=== PATIENT | female | born 1940 | race Caucasian/White ===

== ENCOUNTER 2020-01-09 18:25 | Emergency (ER) | payer MEDICARE, OTHER ==
[~2020-01-09] VITALS: Ht 154.9 cm; Wt 97.7 kg
--- NOTE | 2020-01-09 19:03 | PHYS DOC ---
General Adult EDM: Chief Complaint: HIP PAIN HPI: HPI: Patient is a 79 year old female who presents with right hip pain after falling off the edge of the bed. Patient reports that she had went to the bathroom this morning and was attempting to get back in bed and was too close to the edge and fell off. Patient is reporting right hip pain and right knee pain. Patient has been applying a heating pad and reports that that has helped with her pain. Patient rates pain 8 out of 10. There is 1+ swelling to her right knee. There is no pain with palpation of right hip, no shortening or rotation. Patient is also not having any pain with pelvic rocking. Patient has full range of motion of right knee and no tenderness, deformity or bruising. Patient was able to bear weight after asked incident. Patient normally walks with a walker or cane at home. Patient has a history of arthritis and neuropathy in her right leg. Patient has no focal weaknesses, no loss of bowel or bladder and no saddle paresthesia. Patient also has no urinary complaints. Review of Systems: Review of Systems: Musculoskeletal: Denies back pain. Right knee and hip joint pain. [] Heart Score: Risk Factors: Risk Factors: DM, Current or recent (<one month) smoker, HTN, HLP, family history of CAD, obesity. Risk Scores: Score 0 - 3: 2.5% MACE over next 6 weeks - Discharge Home Score 4 - 6: 20.3% MACE over next 6 weeks - Admit for Clinical Observation Score 7 - 10: 72.7% MACE over next 6 weeks - Early Invasive Strategies Physical Exam: PE: Constitutional: Well developed, well nourished, no acute distress, non-toxic appearance. [] HENT: Normocephalic, atraumatic, bilateral external ears normal, oropharynx moist, no oral exudates, nose normal. [] Eyes: PERRLA, EOMI, conjunctiva normal, no discharge. [] Neck: Normal range of motion, no tenderness, supple, no stridor. [] Cardiovascular:Heart rate regular rhythm, no murmur [] Lungs & Thorax: Bilateral breath sounds clear to auscultation [] Abdomen: Bowel sounds normal, soft, no tenderness, no masses, no pulsatile masses. [] Skin: Warm, dry, no erythema, no rash. [] Back: No tenderness, no CVA tenderness. [] Extremities: No tenderness, no cyanosis, no clubbing, ROM intact, right knee 1+ edema. [] Neurologic: Alert and oriented X 3, normal motor function, normal sensory function, no focal deficits noted. [] Psychologic: Affect normal, judgement normal, mood normal. [] EKG: EKG: [] Radiology/Procedures: Radiology/Procedures: [] Impression: [facility] [address] [place] [address] IMAGING REPORT Signed PATIENT: AWA MANCERA ACCOUNT: [id number] : 1940 LOCATION: ER AGE: 79 SEX: F EXAM STATUS: REG ER ORD. PHYSICIAN: DIANE PIZARRO APRN REASON: pain, fall PROCEDURE: KNEE RIGHT 3V KNEE RIGHT 3V, HIP RIGHT 2V WITH PELVIS 01/09/2020 7:01 PM INDICATION: Fall, pain COMPARISON: None available. TECHNIQUE: AP view of the pelvis, 2 views of the right hip and 3 views of the right knee are provided. FINDINGS/ IMPRESSION: 1. Right hip: Enthesopathy changes are identified along the greater trochanter. Femoral acetabular joint spaces are maintained. No acute fracture or dislocation is identified. Pelvic ring appears intact. There is mild cortical irregularity along the left superior pubic ramus. Correlate with any central pelvic pain to assess for possible fracture. If there is persistent clinical concern, further evaluation with CT could be of benefit. 2. Right knee: No significant knee joint effusion. Mild medial femorotibial joint space narrowing. Mineralization along the medial and lateral femoral tibial joint spaces suggestive of chondrocalcinosis as may be seen with CPPD deposition. Mild right knee osteoarthrosis. No acute fracture or dislocation. Electronically signed by: Kervin Rascon MD (01/09/2020 7:39 PM) [facility] DICTATED and SIGNED BY: KERVIN RASCON MD DATE: 01/09/201938 [facility] [address] [place] [address] IMAGING REPORT Signed PATIENT: AWA MANCERA ACCOUNT: [id number] : 1940 LOCATION: ER AGE: 79 SEX: F EXAM STATUS: REG ER ORD. PHYSICIAN: DIANE PIZARRO APRN REASON: pain, fall PROCEDURE: CT LUMBAR SPINE WO CONTRAST PQRS Compliance Statement: One or more of the following individualized dose reduction techniques were utilized for this examination: 1. Automated exposure control 2. Adjustment of the mA and/or kV according to patient size 3. Use of iterative reconstruction technique CT LUMBAR SPINE WO CONTRAST 01/09/2020 7:01 PM Indication: Pain, fall COMPARISON: None available. TECHNIQUE: A flexible axial CT images of the lumbar spine were obtained without venous contrast. Coronal and sagittal reformats are provided. FINDINGS: There is grade 1 anterolisthesis of L4 on L5. There is superior plate concavity involving L3 with 50 percent height loss, possibly associated with Schmorl's node. There is minimal retropulsion of the superior endplate without significant spinal canal stenosis. Spinous processes are intact. Transverse processes are intact. Visualized portions of the sacrum appear intact. Abdominal aorta is normal in caliber with dense calcified atheromatous plaque. No suspicious retroperitoneal abnormality is identified. Right renal cortical cyst measures 2.2 cm. At L4-L5, there is moderate disc bulge. Moderate to severe facet arthropathy. Moderate bilateral neuroforaminal stenosis. Mild to moderate spinal canal stenosis. L5-S1: There is a left central disc extrusion. Moderate facet arthropathy. There is left lateral recess stenosis. There is moderate left neuroforaminal stenosis. Mild spinal canal stenosis. IMPRESSION: 1. There is a left central disc extrusion at L5-S1 resulting in left lateral recess stenosis and moderate left neuroforaminal stenosis with mild spinal canal stenosis. 2. Superior plate concavity at L3 with 50 percent height loss and mild retropulsion is age-indeterminate and may be chronic. Correlate with point tenderness. If there is persistent clinical concern, further evaluation with MRI could be of benefit. 3. Superior pole simple right renal cyst. Electronically signed by: Kervin Rascon MD (01/09/2020 7:58 PM) [facility] DICTATED and SIGNED BY: KERVIN RASCON MD DATE: 01/09/201957 Course & Med Decision Making: Course & Med Decision Making Pertinent Labs and Imaging studies reviewed. (See chart for details) Patient alert and oriented speaking in full sentences. Skin is pink warm and dry. There is no obvious signs of injury and no obvious deformity. See HPI. Pedal pulses are strong. There is no edema noted to lower extremities. We will obtain a urinalysis to make sure she does not have infection. Patient will have a CT scan of her lumbar spine and x-rays of her knee, hip and pelvis. Patient given [place] in the ED. CT and x-ray showed no acute findings. Patient follow-up with orthopedic. [] Sammy Disclaimer: Dragon Disclaimer: This electronic medical record was generated, in whole or in part, using a voice recognition dictation system. Departure Departure Impression: Primary Impression: Fall Qualified Codes: W19.XXXA - Unspecified fall, initial encounter Additional Impressions: Hip pain, right Knee pain, right Qualified Codes: M25.561 - Pain in right knee UTI (urinary tract infection) Qualified Codes: N39.0 - Urinary tract infection, site not specified Disposition: HOME, SELF-CARE Condition: STABLE Referrals: MAURISIO DUBOSE MD (PCP) RUTH BALL MD Patient Instructions: Fall Prevention and Home Safety, Hip Pain, Knee Pain Additional Instructions: Use ice or heat to help with your pain. Follow-up with your primary care physician. Take the pain medicine I gave you with food and remember will make you sleepy. Scripts Cephalexin (KEFLEX) 500 Mg Capsule 1 CAP PO BID for 7 Days, #14 CAP 0 Refills Prov: DIANE PIZARRO APRN 01/09/20 Hydrocodone/Apap 5-325 (NORCO 5-325 TABLET) 1 Each Tablet 1 TAB PO PRN Q6HRS PRN for PAIN, #6 TAB 0 Refills Prov: DIANE PIZARRO APRN 01/09/20 Justicifation of Admission Dx: Justifications for Admission: Justification of Admission Dx: N/A DIANE PIZARRO APRN Jan 09, 2020 19:03
[2020-01-09] MEDS ORDERED: HYDROcodone/APAP 5/325MG 1 TAB TABLET PO ONE (19:15)
--- NOTE | 2020-01-09 19:42 | RAD ---
KNEE RIGHT 3V, HIP RIGHT 2V WITH PELVIS 01/09/2020 7:01 PM INDICATION: Fall, pain COMPARISON: None available. TECHNIQUE: AP view of the pelvis, 2 views of the right hip and 3 views of the right knee are provided. FINDINGS/ IMPRESSION: 1. Right hip: Enthesopathy changes are identified along the greater trochanter. Femoral acetabular joint spaces are maintained. No acute fracture or dislocation is identified. Pelvic ring appears intact. There is mild cortical irregularity along the left superior pubic ramus. Correlate with any central pelvic pain to assess for possible fracture. If there is persistent clinical concern, further evaluation with CT could be of benefit. 2. Right knee: No significant knee joint effusion. Mild medial femorotibial joint space narrowing. Mineralization along the medial and lateral femoral tibial joint spaces suggestive of chondrocalcinosis as may be seen with CPPD deposition. Mild right knee osteoarthrosis. No acute fracture or dislocation. Electronically signed by: Samia Johnson MD (01/09/2020 7:39 PM) [facility]
--- NOTE | 2020-01-09 20:01 | RAD ---
PQRS Compliance Statement: One or more of the following individualized dose reduction techniques were utilized for this examination: 1. Automated exposure control 2. Adjustment of the mA and/or kV according to patient size 3. Use of iterative reconstruction technique CT LUMBAR SPINE WO CONTRAST 01/09/2020 7:01 PM Indication: Pain, fall COMPARISON: None available. TECHNIQUE: A flexible axial CT images of the lumbar spine were obtained without venous contrast. Coronal and sagittal reformats are provided. FINDINGS: There is grade 1 anterolisthesis of L4 on L5. There is superior plate concavity involving L3 with 50 percent height loss, possibly associated with Schmorl's node. There is minimal retropulsion of the superior endplate without significant spinal canal stenosis. Spinous processes are intact. Transverse processes are intact. Visualized portions of the sacrum appear intact. Abdominal aorta is normal in caliber with dense calcified atheromatous plaque. No suspicious retroperitoneal abnormality is identified. Right renal cortical cyst measures 2.2 cm. At L4-L5, there is moderate disc bulge. Moderate to severe facet arthropathy. Moderate bilateral neuroforaminal stenosis. Mild to moderate spinal canal stenosis. L5-S1: There is a left central disc extrusion. Moderate facet arthropathy. There is left lateral recess stenosis. There is moderate left neuroforaminal stenosis. Mild spinal canal stenosis. IMPRESSION: 1. There is a left central disc extrusion at L5-S1 resulting in left lateral recess stenosis and moderate left neuroforaminal stenosis with mild spinal canal stenosis. 2. Superior plate concavity at L3 with 50 percent height loss and mild retropulsion is age-indeterminate and may be chronic. Correlate with point tenderness. If there is persistent clinical concern, further evaluation with MRI could be of benefit. 3. Superior pole simple right renal cyst. Electronically signed by: Samia Johnson MD (01/09/2020 7:58 PM) [facility]
[2020-01-09] MEDS ORDERED: HYDR-3164 PO (20:12)
[2020-01-09 20:23] VITALS: BP 145/65
[2020-01-09 20:24] LABS: BILIRUBIN,URINE NEGATIVE (NEG); CLARITY,URINE CLOUDY; COLOR,URINE YELLOW; NITRITE,URINE NEGATIVE (NEG); PROTEIN,URINE NEGATIVE (NEG-TRACE); UROBILINOGEN,URINE 0.2 mg/dL (0.2 mg/dL)
[2020-01-09 20:29] LABS: BACTERIA,URINE FEW /HPF (0-FEW); RBC,URINE 0 /HPF (0-2); SQUAMOUS EPITHELIAL CELL,UR MOD /LPF; WBC,URINE >40 /HPF (0-4)
[2020-01-09] MEDS ORDERED: CEPH-264 PO (20:34)
== END 2020-01-09 20:50 | disposition home or self-care (01) ==
LOC: ER 18:25
DX: M25.551 Pain in right hip (principal); M25.561 Pain in right knee; G89.11 Acute pain due to trauma; N39.0 Urinary tract infection, site not specified; M17.11 Unilateral primary osteoarthritis, right knee; N28.1 Cyst of kidney, acquired; M48.02 Spinal stenosis, cervical region; W06.XXXA Fall from bed, initial encounter; Y93.89 Activity, other specified; Y92.89 Other specified places as the place of occurrence of the external cause; Y99.8 Other external cause status
CPT/HCPCS: 72131; 73502; 73562; 81001; 87086; 99285-25

== ENCOUNTER → 2020-02-13 | Outpatient (CLI) | payer MEDICARE, OTHER ==
[~2020-02-13] MED LIST: CEPH-264 PO; HYDR-3164 PO; REGADENOSON 0.4 MG/5 ML DISP.SYRIN. IV ONE
--- NOTE | 2020-02-13 14:44 | CARD ---
MR#: [id number] Date of Study: 02/13/2020 Ordering Physician: KATHY ENGEL, Referring Physician: KATHY ENGEL, Tech: Awilda Zafar [facility] [[email or web address]] APPROVED REPORT EXAM: Two-dimensional and M-mode echocardiogram with Doppler and color Doppler. Other Information Quality : Good INDICATION Murmur Pacemaker 2D DIMENSIONS RVDd3.0 (2.9-3.5cm)Left Atrium(2D)3.6 (1.6-4.0cm) IVSd1.2 (0.7-1.1cm)Aortic Root(2D)2.9 (2.0-3.7cm) LVDd4.5 (3.9-5.9cm)LVOT Diameter2.0 (1.8-2.4cm) PWd1.2 (0.7-1.1cm)LVDs2.6 (2.5-4.0cm) FS (%) 30.0 %SV65.7 ml LVEF(%)60.0 (>50%) Aortic Valve AoV Peak Prince.170.6cm/sAoV VTI35.1cm AO Peak GR.11.6mmHgLVOT Peak Prince.99.8cm/s AO Mean GR.6mmHgAVA (VMAX)1.90cm2 TASIA (VTI)2.70cf9US P 1/2 Nzho874fh Mitral Valve MV E Fegsnepq01.6cm/sMV DECEL MBTV084nw MV A Abpuihqq67.7cm/sE/A Ratio0.8 Tricuspid Valve TR P. Dnifsplo100ph/sRAP ZTBJCGQN3bzVp TR Peak Gr.59frDeEWTA03cnTr Pulmonary Vein S1 Vnhgdxnz12.9cm/sD2 Mimgxryy80.0cm/s LEFT VENTRICLE The left ventricle is normal size. There is moderate concentric left ventricular hypertrophy. The lef t ventricular systolic function is normal and the ejection fraction is within normal range. The Eject ion Fraction is 55-60%. There is normal LV segmental wall motion. Transmitral Doppler flow pattern is Grade I-abnormal relaxation pattern. RIGHT VENTRICLE The right ventricle is normal size. The right ventricular systolic function is normal. There is a pac emaker lead in the right ventricle. ATRIA The left atrium size is normal. The right atrium is mildly dilated. A pacemaker is seen in the right atrium consistent with history. The interatrial septum is intact with no evidence for an atrial septa l defect or patent foramen ovale as noted on 2-D or Doppler imaging. AORTIC VALVE The aortic valve is mildly thickened but opens well. Doppler and Color Flow revealed mild aortic regu rgitation. There is no significant aortic valvular stenosis. MITRAL VALVE The mitral valve is calcified but opens well. Mitral annular calcification is mild. There is no evide nce of mitral valve prolapse. There is no mitral valve stenosis. Doppler and Color Flow revealed no m itral valve regurgitation noted. TRICUSPID VALVE The tricuspid valve is normal in structure and function. Doppler and Color Flow revealed mild tricusp id regurgitation. There is moderate pulmonary hypertension. The PA pressure was estimated at 42 mmHg. There is no tricuspid valve stenosis. PULMONIC VALVE Doppler and Color Flow revealed trace to mild pulmonic valvular regurgitation. There is no pulmonic v alvular stenosis. GREAT VESSELS The aortic root is normal in size. The ascending aorta is normal in size. The IVC is normal in size a nd collapses >50% with inspiration. PERICARDIAL EFFUSION There is no evidence of significant pericardial effusion. Critical Notification Critical Value: No <Conclusion> There is moderate concentric left ventricular hypertrophy. The left ventricular systolic function is normal and the ejection fraction is within normal range. Th e Ejection Fraction is 55-60%. There is normal LV segmental wall motion. There is a pacemaker lead in the right ventricle. Doppler and Color Flow revealed mild aortic regurgitation. Doppler and Color Flow revealed mild tricuspid regurgitation. There is moderate pulmonary hypertensio n. The PA pressure was estimated at 42 mmHg. Signed by : Kwabena Reese, Electronically Approved : 02/13/2020 14:43:58
--- NOTE | 2020-02-13 17:42 | RAD ---
MR#: [id number] Date of Study: 02/13/2020 Ordering Physician: KATHY ENGEL, Referring Physician: PREETHI LAZO Tech: SIMONE Weinberg APPROVED REPORT Test Type: Pharmacological Stress Nurse/Tech: Tanner Quiroga RN Test Indications: CAD Cardiac History: [place], HTN, PPM, See EMR Medications: ASA 81mg, See EMR Medical History: Smoker, Asthma, COPD, CKD, DM, See EMR Resting ECG: Paced Resting Heart Rate: 66 bpm Resting Blood Pressure: 142/57mmHg Pretest Chest Pain: No chest pain Nurse/Tech Notes Right lower lobe with crackles. All other lobes CTA. Heart tones regular. Consent: The procedure was explained to the patient in lay terms. Informed consent was witnessed. Luis eout was entered into [employer]. History and Stress Test performed by SHARMILA Wright, ARRT (R) (N) Pharm. Details Pharmacologic stress testing was performed using 0.4mg per 5ml of regadenoson given intravenously ove r 7-10 seconds. Stress Symptoms No chest pain or symptoms. POST EXERCISE Reason for Termination: Infusion complete Max HR: 94 bpm Max Blood Pressure: 137/53mmHg Blood Pressure response to exercise: Normal blood pressure response during stress. Heart Rate response to exercise: WNL Chest Pain: No. Arrhythmia: Yes. PVCs ST Change: No. INTERPRETATION Stress EKG Conclusion: No evidence of stress induced EKG changes. Frequent PVC's. Imaging Protocol IMAGE PROTOCOL: Rest Tc-99m/stress Tc-99m 1 day Rest: Stress: Viability: Radiopharm.Tc99m VeidneoemUw52j Sestamibi Llja70iVh 33mCi Duration 15min. 10min. Img Date 02/13/2020 02/13/2020 Inj-Img Chie78jzj. 60min. Rest Admin Site:IV - Left AntecubitalAdministrator:SIMONE Weinberg Stress Admin Site: IV - Left AntecubitalAdministrator: SIMONE Weinberg STRESS DATA End Diast. Vol.65.0mlAv. Heart Rate70.0bpm End Syst. Vol.14.0mlCO Index BSA0.0L/min Myocardial Frpy077.0gEject. Wpraauyx88.0% Stress Rates Pk. Fill Rate2.44EDV/secLVtime Pk. Fill 237.01msec Pk. Empty Rate4.60ESV/secLVtime Pk. Ikyut830.91msec 1/ Pk. Fill1.00EDV/sec Stress Scores Regional WT0.00Summed WT0.00 Regional WM0.00Summed WM0.00 The rest and stress images show normal perfusion, normal contraction and thickening. LV Perf. Quant 17 Seg. SSS0.00 17 Seg. SRS0.00 17 Seg. SDS0.00 Stress Defect Extent (% LAD)0.00Rest Defect Extent (% LAD)0.00Rev. Defect Extent (% LAD)0.00 Stress Defect Extent (% LCX) 0.00Rest Defect Extent (% LCX)0.00Rev. Defect Extent (% LCX)0.00 Stress Defect Extent (% RCA)0.00Rest Defect Extent (% RCA)0.00Rev. Defect Extent (% RCA)0.00 Stress Defect Extent (% JAMILA)0.00Rest Defect Extent (% JAMILA)0.00Rev. Defect Extent (% JAMILA)0.00 Other Information Quality:Average Risk Assessment: Low Risk Conclusion 1. No evidence of EKG changes with stress testing. Frequent PVC's noted. 2. Normal perfusion at stress/rest. 3. Low risk study. 4. EF > 60%. Signed by : Kwabena Reese, Electronically Approved : 02/13/2020 17:42:36
== END | disposition home or self-care (01) ==
LOC: EDUNIT# 02-12 13:00 → NM 07:33
PROVIDERS: ATTEND Internal Medicine Cardiovascular Disease
DX: I08.8 Other rheumatic multiple valve diseases (principal); I25.10 Atherosclerotic heart disease of native coronary artery without angina pectoris; I10 Essential (primary) hypertension; I25.2 Old myocardial infarction; I27.20 Pulmonary hypertension, unspecified; Z95.0 Presence of cardiac pacemaker
CPT/HCPCS: 78452; 93017; 93306; A9500; J2785

== ENCOUNTER → 2020-02-28 | Outpatient (CLI) | payer MEDICARE, OTHER ==
[~2020-02-28] MED LIST changes: -REGADENOSON 0.4 MG/5 ML DISP.SYRIN. IV ONE
--- NOTE | 2020-02-28 13:31 | KCIC ---
STUDY: Complete renal sonogram INDICATION: Stage III chronic kidney disease. COMPARISON: None. TECHNIQUE: Real-time grayscale and color Doppler sonographic evaluation of both kidneys. The bladder was also evaluated. FINDINGS: Right kidney: Measures 10.1 cm in length. The cortex is thinned and echogenicity increased. Several cysts are identified none of which exhibit complex features noting that the smaller cysts are somewhat difficult to fully characterize based on size. The largest cyst measures 2.1 x 2.1 x 2.2 cm. No hydronephrosis. Left kidney: Measures 11.9 cm in length and the cortex appears thinned at a few locations and mildly echogenic but less notable relative to the contralateral side. Small exophytic cystic foci without thickened septations or internal vascularity. The largest cyst measures up to 1.2 cm. No hydronephrosis. Bladder: Decompressed and not well evaluated. Miscellaneous: None. IMPRESSION: 1. The kidneys are normal in length. No hydronephrosis. The right kidney exhibits cortical thinning and increased cortical echogenicity as can be seen with chronic medical renal disease. Similar but less notable findings on the left. 2. Several renal cysts bilaterally, larger on the right, without complex features that would warrant dedicated follow-up. Electronically signed by: CONSUELO JACOBO MD (02/28/2020 1:29 PM) [id number]
== END ==
LOC: KCIC US 12:26
PROVIDERS: ATTEND Internal Medicine Nephrology
DX: N28.1 Cyst of kidney, acquired (principal); N18.3 Chronic kidney disease, stage 3 (moderate)
CPT/HCPCS: 76770

== ENCOUNTER → 2020-04-03 | Outpatient (CLI) | payer MEDICARE, OTHER ==
--- NOTE | 2020-04-03 16:49 | RAD ---
DATE: 04/03/2020 1:28 PM EXAM: MAMMO TARIQ SCREENING BILATERAL HISTORY: Screening COMPARISON: None available. This will serve as a new baseline. Bilateral CC and MLO views of the breasts were performed. Bilateral breast tomosynthesis was performed in CC and MLO projections. This study was interpreted with the benefit of Computerized Aided Detection (CAD). FINDINGS: Breast Density: SCATTERED The breast parenchyma shows scattered fibroglandular densities. Breast parenchyma level B No suspicious masses, microcalcifications or architectural distortion is present to suggest malignancy in either breast. The visualized axillae are unremarkable. IMPRESSION: No mammographic evidence of malignancy. BI-RADS CATEGORY: 1 NEGATIVE RECOMMENDED FOLLOW-UP: 12M 12 MONTH FOLLOW-UP Annual screening mammography is recommended, unless clinically indicated sooner based on symptoms or change in physical exam. PQRS compliance statement: Patient information was entered into a reminder system with a target due date for the next mammogram. Mammography is a sensitive method for finding small breast cancers, but it does not detect them all and is not a substitute for careful clinical examination. A negative mammogram does not negate a clinically suspicious finding and should not result in delay in biopsying a clinically suspicious abnormality. "Our facility is accredited by the [employer] Mammography Program."
== END | disposition home or self-care (01) ==
LOC: MAMMO 13:09
PROVIDERS: ATTEND Family Medicine
DX: Z12.31 Encounter for screening mammogram for malignant neoplasm of breast (principal)
CPT/HCPCS: 77063; 77067

== ENCOUNTER → 2020-08-29 | Outpatient (CLI) | payer MEDICARE, OTHER ==
[~2020-08-29] MED LIST changes: +IOHEXOL 240 MG/ML 50ML VIAL. PO ONE
--- NOTE | 2020-08-29 15:17 | KCIC ---
CT ABDOMEN+PELVIS W Indication: Reason: Pain, weight loss, change in bowel habits. / Spl. Instructions: / History: Pelvic pain, previous umbilical surgery TECHNIQUE: CT examination of the abdomen and pelvis was performed following the administration of oral and nonionic intravenous contrast. One or more of the following dose reduction techniques were utilized: *Automated exposure control (AEC) *Adjustment of mA and/or kV according to patient size *Use of iterative reconstruction technique *CT scan done according to ALARA, or ALARA/IMAGE GENTLY FINDINGS: Motion artifact limits evaluation. The visualized lung bases demonstrate diffuse groundglass opacities and reticular markings which are nonspecific but may represent atelectasis, air- trapping, fibrosis, and/or motion artifact. Heart is enlarged with coronary artery calcifications. There is a small hiatal hernia. There are calcified granulomas in the liver and spleen. There are small bilateral renal lesions, several of which demonstrate low density consistent with cysts. There is a 1.0 cm round lesion in the right kidney measuring 78 Hounsfield units which is nonspecific but could represent a hyperdense cyst. There is a 1.4 cm round lesion in the lower pole of the left kidney measuring 25 Hounsfield units, also nonspecific but possibly representing a hyperdense cyst. The liver, gallbladder, spleen, pancreas, adrenal glands and kidneys are otherwise normal. Urinary bladder is normal in appearance. Diverticulosis coli is seen without bowel obstruction or inflammation. No evidence for acute appendicitis. There are small bilateral fat-containing inguinal hernias. Moderate atherosclerotic calcifications are seen. No lymphadenopathy or ascites is seen. Degenerative changes are seen in the spine. IMPRESSION: Bilateral renal lesions, several of which demonstrate low-density consistent with cysts. Bilateral hyperdense renal lesions are nonspecific but could represent hyperdense cysts. Other neoplastic considerations are not excluded however. Further evaluation with ultrasound is recommended. If ultrasound is inconclusive, these can be further evaluated with MRI with and without contrast. Diverticulosis coli without bowel inflammation or obstruction. Suboptimal evaluation of the lung bases due to motion artifact. Diffuse groundglass opacities and reticular markings of the lung bases are nonspecific but could represent atelectasis, air-trapping, fibrosis, and/or motion artifact. Infection is not excluded. MTDD
== END ==
LOC: KCIC CT 08:49
PROVIDERS: ATTEND Internal Medicine Gastroenterology
DX: K57.30 Diverticulosis of large intestine without perforation or abscess without bleeding (principal); N28.89 Other specified disorders of kidney and ureter; I51.7 Cardiomegaly; I25.10 Atherosclerotic heart disease of native coronary artery without angina pectoris; K44.9 Diaphragmatic hernia without obstruction or gangrene; K76.89 Other specified diseases of liver; D73.89 Other diseases of spleen; K40.90 Unilateral inguinal hernia, without obstruction or gangrene, not specified as recurrent; I70.90 Unspecified atherosclerosis; M47.816 Spondylosis without myelopathy or radiculopathy, lumbar region; R63.4 Abnormal weight loss; R19.4 Change in bowel habit
CPT/HCPCS: 74176; Q9966

== ENCOUNTER → 2020-09-11 | Outpatient (CLI) | payer MEDICARE, OTHER ==
[~2020-09-11] MED LIST changes: +AMOX1TAB58 PO; +CETI10TA16 PO; +CLOP75TA PO; +CRESTOR5 MG PO; +DICY10CA3 PO; +DONE10TA7 PO; +GLYB2.5T2 PO; -IOHEXOL 240 MG/ML 50ML VIAL. PO ONE; +LACT1CAP48 PO; +LOSA25TA4 PO; +METF500T16 PO; +METH5TAB85 PO; +PRED20TA PO; +QUET100T4 PO; +SERT-266 PO
--- NOTE | 2020-09-11 17:08 | KCIC ---
US RENAL BILAT History: Reason: Bilateral Renal Lesions seen on CT scan 08-29-20. Instructions: / History: Comparison: CT abdomen and pelvis 08/29/2020. Renal ultrasound 02/28/2020. Technique: Sonographic examination of the kidneys and bladder. Findings: Right kidney: 10.5 cm in length. Diffuse renal cortical thinning. Multiple right renal cysts are pres ent, largest measuring 2.7 cm. No renal masses identified. No hydronephrosis. Left kidney: 11.7 cm in length. Diffuse renal cortical thinning. Multiple left renal cysts are presen t. Largest measures 1.8 cm. No left renal masses. No hydronephrosis. Bladder: Unremarkable partially distended. Aorta/IVC: Visualized portions are unremarkable. Other: No ascites. Impression: 1. Multiple bilateral renal cysts without renal mass identified. Hyperdense lesions on comparison CT are consistent with proteinaceous or hemorrhagic cysts. 2. Cortical thinning consistent with medical renal disease. Electronically signed by: Mk Buckley MD (09/11/2020 5:06 PM) [facility]
== END ==
LOC: KCIC US 10:24
PROVIDERS: ATTEND Physician Assistant
DX: N28.1 Cyst of kidney, acquired (principal)
CPT/HCPCS: 76770

== ENCOUNTER 2020-10-14 11:55 | Inpatient (IN) | payer MEDICARE, OTHER ==
[~2020-10-14] VITALS: Ht 157.5 cm; Wt 70.5 kg
[~2020-10-14 11:55] MED LIST changes: -AMOX1TAB58 PO; +LOSA25TA12 PO; -LOSA25TA4 PO; -PRED20TA PO
--- NOTE | 2020-10-14 12:27 | RAD ---
INDICATION: Reason: chest pain, SOA / Spl. Instructions: / History: COMPARISON: September 19, 2020 FINDINGS: Single view of chest obtained. Cardiac mediastinal silhouette is similar to prior with calcific atherosclerosis as well as pacemaker . There are some degenerative changes of the bilateral shoulders and acromioclavicular joints. Inters titial and alveolar opacities are seen throughout the bilateral lungs in a similar distribution vignesh red to prior IMPRESSION: * Persistent interstitial and groundglass opacities bilaterally which could be from edema or infiltr ate. Electronically signed by: Obdulio Schaffer MD (10/14/2020 12:25 PM) [id number]
[2020-10-14 13:42] LABS: BASO # 0.1 x10^3/uL (0.0-0.2); BASO % 1 % (0-3); EOS # 0.3 x10^3/uL (0.0-0.7); EOS % 3 % (0-3); HEMATOCRIT 33.1 % (36.0-47.0); LYMPH # 1.7 x10^3/uL (1.0-4.8); LYMPH % 18 % (24-48); MEAN CORPUSCULAR HEMOGLOBIN 27 pg (25-35); MEAN CORPUSCULAR HGB CONC 33 g/dL (31-37); MEAN CORPUSCULAR VOLUME 80 fL (79-100); MONO # 0.7 x10^3/uL (0.0-1.1); MONO % 7 % (0-9); NEUT % 71 % (31-73); PLATELET COUNT 287 x10^3/uL (140-400); RED BLOOD COUNT 4.12 x10^6/uL (3.50-5.40); RED CELL DISTRIBUTION WIDTH 15.3 % (11.5-14.5); WHITE BLOOD COUNT 9.8 x10^3/uL (4.0-11.0)
[2020-10-14 13:54] LABS: CALCIUM 8.7 mg/dL (8.5-10.1); CREATININE 1.2 mg/dL (0.6-1.0); GFR 43.4; POTASSIUM 4.8 mmol/L (3.5-5.1)
[2020-10-14 14:01] LABS: ALBUMIN 3.1 g/dL (3.4-5.0); ALBUMIN/GLOBULIN RATIO 0.9 (1.0-1.7); MAGNESIUM 1.9 mg/dL (1.8-2.4); TOTAL BILIRUBIN 0.2 mg/dL (0.2-1.0); TOTAL PROTEIN 6.6 g/dL (6.4-8.2)
--- NOTE | 2020-10-14 14:22 | ED.ADGEN ---
Past Medical History Past Medical History: Arthritis, COPD, Dementia, Diabetes-Type II, Hypertension, Other Additional Past Medical Histor: NEUROPATHY Past Surgical History: Appendectomy, Cholecystectomy, Other Additional Past Surgical Histo: PACEMAKER Smoking Status: Former Smoker Alcohol Use: None General Adult EDM: Chief Complaint: SHORTNESS OF BREATH HPI: HPI: Patient is a 79 year old female who presents emergency department via EMS today with reports of shortness of breath. EMS reports that the patient's home health nurse called patient of frequent falls and hypoxia. Patient's O2 sat was 88% on room air. Patient states she has had a productive brown cough for several weeks and that she feels short of breath after she has been walking. Patient denies any chest pain, palpitations, nausea, vomiting, diarrhea, abdominal pain, or dizziness. She denies any fever, swelling of her extremities, body aches, or rash. Patient does not wear oxygen at home. She reports that she has received two COVID-19 immunizations already. Patient reports she was having problems with a cough in the sputum prior to receiving her first Covid injection. She denies any known exposure to COVID-19. She currently denies any pain. Review of Systems: Review of Systems: Complete ROS is negative unless otherwise noted in HPI. Allergies: Allergies: Allergies Coded Allergies Type Severity Reaction Last Updated Verified No Known Drug Allergies 01/09/20 No Physical Exam: PE: See Above Constitutional: Well developed, well nourished, no acute distress, non-toxic appearance. [] HENT: Normocephalic, atraumatic, bilateral external ears normal, nose normal. [] Eyes: PERRLA, EOMI, conjunctiva normal, no discharge. [] Neck: Normal range of motion, no stridor. [] Cardiovascular:Heart rate regular rhythm Lungs & Thorax: Respirations even and unlabored, no retractions, no respiratory distress, lung sounds diminished bilateral bases, clear in upper lobes bilaterally, Abdomen: soft, no tenderness, no palpable mass, no pulsatile mass, Skin: Warm, dry, no erythema, no rash. [] Extremities: No cyanosis, ROM intact, no edema. [] Neurologic: Alert and oriented X 3, normal motor, normal sensory, no focal deficits noted. [] Psychologic: Affect normal, judgement normal, mood normal. [] Current Patient Data: Labs: Laboratory Tests Test 10/14/20 13:30 White Blood Count 9.8 x10^3/uL (4.0-11.0) Red Blood Count 4.12 x10^6/uL (3.50-5.40) Hemoglobin 11.0 g/dL (12.0-15.5) L Hematocrit 33.1 % (36.0-47.0) L Mean Corpuscular Volume 80 fL (79-100) Mean Corpuscular Hemoglobin 27 pg (25-35) Mean Corpuscular Hemoglobin Concent 33 g/dL (31-37) Red Cell Distribution Width 15.3 % (11.5-14.5) H Platelet Count 287 x10^3/uL (140-400) Neutrophils (%) (Auto) 71 % (31-73) Lymphocytes (%) (Auto) 18 % (24-48) L Monocytes (%) (Auto) 7 % (0-9) Eosinophils (%) (Auto) 3 % (0-3) Basophils (%) (Auto) 1 % (0-3) Neutrophils # (Auto) 7.0 x10^3/uL (1.8-7.7) Lymphocytes # (Auto) 1.7 x10^3/uL (1.0-4.8) Monocytes # (Auto) 0.7 x10^3/uL (0.0-1.1) Eosinophils # (Auto) 0.3 x10^3/uL (0.0-0.7) Basophils # (Auto) 0.1 x10^3/uL (0.0-0.2) D-Dimer (Kay) < 0.27 ug/mlFEU Sodium Level 142 mmol/L (136-145) Potassium Level 4.8 mmol/L (3.5-5.1) Chloride Level 105 mmol/L (98-107) Carbon Dioxide Level 26 mmol/L (21-32) Anion Gap 11 (6-14) Blood Urea Nitrogen 22 mg/dL (7-20) H Creatinine 1.2 mg/dL (0.6-1.0) H Estimated GFR (Cockcroft-Gault) 43.4 BUN/Creatinine Ratio 18 (6-20) Glucose Level 124 mg/dL (70-99) H Calcium Level 8.7 mg/dL (8.5-10.1) Magnesium Level 1.9 mg/dL (1.8-2.4) Total Bilirubin 0.2 mg/dL (0.2-1.0) Aspartate Amino Transferase (AST) 15 U/L (15-37) Alanine Aminotransferase (ALT) 11 U/L (14-59) L Alkaline Phosphatase 76 U/L (46-116) Creatine Kinase 45 U/L (26-192) Creatine Kinase MB (Mass) 0.8 ng/mL (0.0-3.6) Creatine Kinase MB Relative Index 1.8 % (0-4) Troponin I Quantitative < 0.017 ng/mL (0.000-0.055) JL-Bmm-G-Type Natriuretic Peptide 715 pg/mL (0-449) H Total Protein 6.6 g/dL (6.4-8.2) Albumin 3.1 g/dL (3.4-5.0) L Albumin/Globulin Ratio 0.9 (1.0-1.7) L Lipase 60 U/L (73-393) L Laboratory Tests 10/14/20 13:30 Laboratory Tests 10/14/20 13:30 Vital Signs: Vital Signs Date Time Temp Pulse Resp B/P (MAP) Pulse Ox O2 Delivery O2 Flow Rate FiO2 10/14/20 14:04 60 18 141/65 (90) 98 Nasal Cannula 2.0 10/14/20 12:06 97.3 97.3 EKG: EK- SR rate 60 no STEMI read by Dr. Levy. Heart Score: C/O Chest Pain: No Risk Factors: Risk Factors: DM, Current or recent (<one month) smoker, HTN, HLP, family history of CAD, obesity. Risk Scores: Score 0 - 3: 2.5% MACE over next 6 weeks - Discharge Home Score 4 - 6: 20.3% MACE over next 6 weeks - Admit for Clinical Observation Score 7 - 10: 72.7% MACE over next 6 weeks - Early Invasive Strategies Radiology/Procedures: Radiology/Procedures: PROCEDURE: CHEST AP ONLY INDICATION: Reason: chest pain, SOA / Spl. Instructions: / History: COMPARISON: September 19, 2020 FINDINGS: Single view of chest obtained. Cardiac mediastinal silhouette is similar to prior with calcific atherosclerosis as well as pacemaker. There are some degenerative changes of the bilateral shoulders and acromioclavicular joints. Interstitial and alveolar opacities are seen throughout the bilateral lungs in a similar distribution compared to prior IMPRESSION: * Persistent interstitial and groundglass opacities bilaterally which could be from edema or infiltrate. Electronically signed by: Obdulio Schaffer MD (10/14/2020 12:25 PM) [id number] [] Course & Med Decision Making: Course & Med Decision Making Pertinent Labs and Imaging studies reviewed. (See chart for details) [id number] with Dr. Barnhart who is the admitting physician, and care was assumed following discussion of patient. Will admit patient for shortness of breath. Patient's vital signs stable. Patient remains afebrile, appears nontoxic, respirations even and unlabored. Patient will be admitted to the telemetry floor. Patient's case and plan of care also discussed with Dr. Levy [] Sammy Disclaimer: Sammy Disclaimer: This electronic medical record was generated, in whole or in part, using a voice recognition dictation system. Departure Departure Impression: Primary Impression: Shortness of breath Additional Impression: UTI (urinary tract infection) Disposition: 09 ADMITTED INPT THIS HOSP Admitting Physician: CIRA (BUZZ) Condition: STABLE Referrals: MAURISIO DUBOSE MD (PCP) Problem Qualifiers Additional Impression: UTI (urinary tract infection) Urinary tract infection type: site unspecified Hematuria presence: without hematuria Qualified Codes: N39.0 - Urinary tract infection, site not specified YOANNA YANG APRN Oct 14, 2020 14:22
[2020-10-14 14:48] LABS: BILIRUBIN,URINE NEGATIVE (NEG); CLARITY,URINE CLEAR; COLOR,URINE YELLOW; NITRITE,URINE NEGATIVE (NEG); PH,URINE 5.5 (<5.0-8.0); PROTEIN,URINE 30 mg/dL (NEG-TRACE); UROBILINOGEN,URINE 0.2 mg/dL (0.2 mg/dL)
[2020-10-14 14:59] LABS: RBC,URINE 0 /HPF (0-2); WBC,URINE 20-40 /HPF (0-4)
[2020-10-14 15:00] LABS: BACTERIA,URINE FEW /HPF (0-FEW)
[2020-10-14 15:20] VITALS: BP 100/81
[2020-10-14] MEDS ORDERED: cefTRIAXone IV Push 1 GM VIAL. IVP ONE (15:30)
[2020-10-14] MEDS ORDERED: DICYCLOMINE HCL 10 MG CAPSULE PO PRN (16:45)
[2020-10-14] MEDS ORDERED: ZOLPIDEM 5 MG TABLET. PO PRN (18:30)
[2020-10-14 19:00] VITALS: BP 130/53
--- NOTE | 2020-10-14 19:18 | PDOC1 ---
History and Physical Date of Admission Date of Admission DATE: 10/14/20 TIME: 19:12 Identification/Chief Complaint Chief Complaint cough, dyspnea Source Source: Chart review, Patient History of Present Illness History of Present Illness Ms. Schaeffer, is a 79 year old female admit with cough and dyspnea and hypoxia. She was sent to ER by EMS when her home health nurse called patient of frequent falls and hypoxia. new productive brown cough for days and noticeably short of breath, w. exe rtion. she was hospiotalized here 3 weeks ago, and felt much better at [place], then has declined over the past week until now. Patient denies any chest pain, palpitations, nausea, vomiting, diarrhea, abdominal pain, or dizziness. She denies any fever, swelling of her extremities, body aches, or rash. She reports that she has received two COVID- 19 immunizations already Past Medical History Cardiovascular: HTN Pulmonary: No pertinent hx GI: No pertinent hx Hepatobiliary: No pertinent hx Psych: No pertinent hx Rheumatologic: No pertinent hx Infectious disease: No pertinent hx Renal/: No pertinent hx Endocrine: Hyperthyroidism Family History Family History: No Significant Social History Smoke: No ALCOHOL: none Drugs: None Current Problem List Problem List Problems Medical Problems: (1) Shortness of breath Status: Acute (2) UTI (urinary tract infection) Status: Acute Current Medications Current Medications Current Medications Ceftriaxone Sodium (Rocephin) 1 gm 1X ONCE IVP Last administered on 10/14/20at 16:02; Start 10/14/20 at 15:30; Stop 10/14/20 at 15:31; Status DC Cetirizine HCl (ZyrTEC) 10 mg DAILY PO ; Start 10/15/20 at 09:00 Clopidogrel Bisulfate (Plavix) 75 mg DAILY PO ; Start 10/15/20 at 09:00 Dicyclomine HCl (Bentyl) 10 mg PRN Q6HRS PRN PO ABDOMINAL CRAMPS; Start 10/14/20 at 16:45 Donepezil HCl (Aricept) 10 mg HS PO ; Start 10/14/20 at 21:00 Losartan Potassium (Cozaar) 25 mg DAILY PO ; Start 10/15/20 at 09:00 Quetiapine Fumarate (SEROquel) 100 mg QHS PO ; Start 10/14/20 at 21:00 Sertraline HCl (Zoloft) 25 mg DAILY PO ; Start 10/15/20 at 09:00 Lactobacillus Rhamnosus (Culturelle) 1 cap BID PO ; Start 10/14/20 at 21:00 Methimazole (Tapazole) 5 mg DAILY PO ; Start 10/15/20 at 09:00 Atorvastatin Calcium (Lipitor) 40 mg QHS PO ; Start 10/14/20 at 21:00 Enoxaparin Sodium (Lovenox Per Pharmacy Prophylaxis Dosing) 1 each PRN DAILY PRN MC SEE COMMENTS; Start 10/14/20 at 16:45 Enoxaparin Sodium (Lovenox 40mg Syringe) 40 mg Q24H SQ ; Start 10/15/20 at 09:00 Zolpidem Tartrate (Ambien) 5 mg PRN QHS PRN PO INSOMNIA; Start 10/14/20 at 18:30 Active Scripts Active Seroquel (Quetiapine Fumarate) 100 Mg Tablet 1 Tab PO QHS Reported Dicyclomine Hcl 10 Mg Capsule 1 Cap PO PRN Q6HRS Acidophilus Lactobacilli (Lactobacillus Acidophilus) 1 Each Capsule 1 Cap PO BID 30 Days Cetirizine Hcl 10 Mg Tablet 1 Tab PO DAILY Crestor (Rosuvastatin Calcium) 5 Mg Tablet 10 Mg PO DAILY Tapazole (Methimazole) 5 Mg Tablet 5 Mg PO DAILY Clopidogrel (Clopidogrel Bisulfate) 75 Mg Tablet 75 Mg PO DAILY Donepezil Hcl 10 Mg Tablet 10 Mg PO HS Sertraline Hcl 25 Mg Tablet 25 Mg PO DAILY Losartan Potassium 25 Mg Tablet 25 Mg PO DAILY Allergies Allergies: Coded Allergies: No Known Drug Allergies (Unverified , 01/09/20) ROS General: YES: Fatigue; No: Chills, Night Sweats, Malaise, Appetite, Other PSYCHOLOGICAL ROS: No: Anxiety, Behavioral Disorder, Concentration difficultie, Decreased libido, Depression, Disorientation, Hallucinations, Hostility, Irritablity, Memory difficulties, Mood Swings, Obsessive thoughts, Physical abuse, Sexual abuse, Sleep disturbances, Suicidal ideation, Other Eyes: No Blurry vision, No Decreased vision, No Double vision, No Dry eyes, No Excessive tearing, No Eye Pain, No Itchy Eyes, No Loss of vision, No Photophobia, No Scotomata, No Uses contacts, No Uses glasses, No Other HEENT: YES: Heacaches; No: Visual Changes, Hearing change, Nasal congestion, Nasal discharge, Oral lesions, Sinus pain, Sore Throat, Epistaxis, Sneezing, Snoring, Tinnitus, Vertigo, Vocal changes, Other Respiratory: YES: Cough, Shortness of breath, SOB with excertion; No: Orthopnea, Pleuritic Pain, Sputum Changes, Stridor, Tachypnea, Wheezing, Other Cardiovascular: No Chest Pain, No Palpitations, No Orthopnea, No Paroxysmal Noc. Dyspnea, No Edema, No Lt Headedness, No Other Gastrointestinal: Yes Nausea; No Vomiting, No Abdominal Pain, No Diarrhea, No Constipation, No Melena, No Hematochezia, No Other Musculoskeletal: No Gait Disturbance, No Joint Pain, No Joint Stiffness, No Joint Swelling, No Muscle Pain, No Muscular Weakness, No Pain In:, No Swelling In:, No Other Neurological: No Behavorial Changes, No Bowel/Bladder ControlChng, No Confusion, No Dizziness, No Gait Disturbance, No Headaches, No Impaired Coord/balance, No Memory Loss, No Numbness/Tingling, No Seizures, No Speech Problems, No Tremors, No Visual Changes, No Weakness, No Other Skin: No Dry Skin, No Eczema, No Hair Changes, No Lumps, No Mole Changes, No Mottling, No Nail Changes, No Pruritus, No Rash, No Skin Lesion Changes, No Other, No Acne Physical Exam General: Alert, Oriented X3, Cooperative, mild distress HEENT: Atraumatic, PERRLA Lungs: Other (mod volume, good effort, no cough, no rhonchi, no wheeze, rales at bases) Heart: RRR Abdomen: Normal bowel sounds, Soft Extremities: No edema, Normal pulses Skin: No significant lesion Neuro: Normal gait, Normal speech, Normal tone, Sensation intact Psych/Mental Status: Mental status NL, Mood NL Vitals Vitals Vital Signs Date Time Temp Pulse Resp B/P (MAP) Pulse Ox O2 Delivery O2 Flow Rate FiO2 10/14/20 16:23 Room Air 10/14/20 15:20 97.7 70 18 100/81 (87) 96 2.0 97.7 Labs Labs Laboratory Tests Test 10/14/20 13:30 10/14/20 14:33 White Blood Count 9.8 x10^3/uL (4.0-11.0) Red Blood Count 4.12 x10^6/uL (3.50-5.40) Hemoglobin 11.0 g/dL (12.0-15.5) Hematocrit 33.1 % (36.0-47.0) Mean Corpuscular Volume 80 fL (79-100) Mean Corpuscular Hemoglobin 27 pg (25-35) Mean Corpuscular Hemoglobin Concent 33 g/dL (31-37) Red Cell Distribution Width 15.3 % (11.5-14.5) Platelet Count 287 x10^3/uL (140-400) Neutrophils (%) (Auto) 71 % (31-73) Lymphocytes (%) (Auto) 18 % (24-48) Monocytes (%) (Auto) 7 % (0-9) Eosinophils (%) (Auto) 3 % (0-3) Basophils (%) (Auto) 1 % (0-3) Neutrophils # (Auto) 7.0 x10^3/uL (1.8-7.7) Lymphocytes # (Auto) 1.7 x10^3/uL (1.0-4.8) Monocytes # (Auto) 0.7 x10^3/uL (0.0-1.1) Eosinophils # (Auto) 0.3 x10^3/uL (0.0-0.7) Basophils # (Auto) 0.1 x10^3/uL (0.0-0.2) D-Dimer (Kay) < 0.27 ug/mlFEU Sodium Level 142 mmol/L (136-145) Potassium Level 4.8 mmol/L (3.5-5.1) Chloride Level 105 mmol/L (98-107) Carbon Dioxide Level 26 mmol/L (21-32) Anion Gap 11 (6-14) Blood Urea Nitrogen 22 mg/dL (7-20) Creatinine 1.2 mg/dL (0.6-1.0) Estimated GFR (Cockcroft-Gault) 43.4 BUN/Creatinine Ratio 18 (6-20) Glucose Level 124 mg/dL (70-99) Calcium Level 8.7 mg/dL (8.5-10.1) Magnesium Level 1.9 mg/dL (1.8-2.4) Total Bilirubin 0.2 mg/dL (0.2-1.0) Aspartate Amino Transf (AST/SGOT) 15 U/L (15-37) Alanine Aminotransferase (ALT/SGPT) 11 U/L (14-59) Alkaline Phosphatase 76 U/L (46-116) Creatine Kinase 45 U/L (26-192) Creatine Kinase MB (Mass) 0.8 ng/mL (0.0-3.6) Creatine Kinase MB Relative Index 1.8 % (0-4) Troponin I Quantitative < 0.017 ng/mL (0.000-0.055) CM-Lzw-Z-Type Natriuretic Peptide 715 pg/mL (0-449) Total Protein 6.6 g/dL (6.4-8.2) Albumin 3.1 g/dL (3.4-5.0) Albumin/Globulin Ratio 0.9 (1.0-1.7) Lipase 60 U/L (73-393) Urine Collection Type Unknown Urine Color Yellow Urine Clarity Clear Urine pH 5.5 (<5.0-8.0) Urine Specific [place] 1.025 (1.000-1.030) Urine Protein 30 mg/dL (NEG-TRACE) Urine Glucose (UA) Negative mg/dL (NEG) Urine Ketones (Stick) Negative mg/dL (NEG) Urine Blood Negative (NEG) Urine Nitrite Negative (NEG) Urine Bilirubin Negative (NEG) Urine Urobilinogen Dipstick 0.2 mg/dL (0.2 mg/dL) Urine Leukocyte Esterase Moderate (NEG) Urine RBC 0 /HPF (0-2) Urine WBC 20-40 /HPF (0-4) Urine Squamous Epithelial Cells Mod /LPF Urine Bacteria Few /HPF (0-FEW) Urine Mucus Mod /LPF Laboratory Tests Test 10/14/20 13:30 10/14/20 14:33 White Blood Count 9.8 x10^3/uL (4.0-11.0) Red Blood Count 4.12 x10^6/uL (3.50-5.40) Hemoglobin 11.0 g/dL (12.0-15.5) Hematocrit 33.1 % (36.0-47.0) Mean Corpuscular Volume 80 fL (79-100) Mean Corpuscular Hemoglobin 27 pg (25-35) Mean Corpuscular Hemoglobin Concent 33 g/dL (31-37) Red Cell Distribution Width 15.3 % (11.5-14.5) Platelet Count 287 x10^3/uL (140-400) Neutrophils (%) (Auto) 71 % (31-73) Lymphocytes (%) (Auto) 18 % (24-48) Monocytes (%) (Auto) 7 % (0-9) Eosinophils (%) (Auto) 3 % (0-3) Basophils (%) (Auto) 1 % (0-3) Neutrophils # (Auto) 7.0 x10^3/uL (1.8-7.7) Lymphocytes # (Auto) 1.7 x10^3/uL (1.0-4.8) Monocytes # (Auto) 0.7 x10^3/uL (0.0-1.1) Eosinophils # (Auto) 0.3 x10^3/uL (0.0-0.7) Basophils # (Auto) 0.1 x10^3/uL (0.0-0.2) D-Dimer (Kay) < 0.27 ug/mlFEU Sodium Level 142 mmol/L (136-145) Potassium Level 4.8 mmol/L (3.5-5.1) Chloride Level 105 mmol/L (98-107) Carbon Dioxide Level 26 mmol/L (21-32) Anion Gap 11 (6-14) Blood Urea Nitrogen 22 mg/dL (7-20) Creatinine 1.2 mg/dL (0.6-1.0) Estimated GFR (Cockcroft-Gault) 43.4 BUN/Creatinine Ratio 18 (6-20) Glucose Level 124 mg/dL (70-99) Calcium Level 8.7 mg/dL (8.5-10.1) Magnesium Level 1.9 mg/dL (1.8-2.4) Total Bilirubin 0.2 mg/dL (0.2-1.0) Aspartate Amino Transf (AST/SGOT) 15 U/L (15-37) Alanine Aminotransferase (ALT/SGPT) 11 U/L (14-59) Alkaline Phosphatase 76 U/L (46-116) Creatine Kinase 45 U/L (26-192) Creatine Kinase MB (Mass) 0.8 ng/mL (0.0-3.6) Creatine Kinase MB Relative Index 1.8 % (0-4) Troponin I Quantitative < 0.017 ng/mL (0.000-0.055) XP-Ciu-Z-Type Natriuretic Peptide 715 pg/mL (0-449) Total Protein 6.6 g/dL (6.4-8.2) Albumin 3.1 g/dL (3.4-5.0) Albumin/Globulin Ratio 0.9 (1.0-1.7) Lipase 60 U/L (73-393) Urine Collection Type Unknown Urine Color Yellow Urine Clarity Clear Urine pH 5.5 (<5.0-8.0) Urine Specific [place] 1.025 (1.000-1.030) Urine Protein 30 mg/dL (NEG-TRACE) Urine Glucose (UA) Negative mg/dL (NEG) Urine Ketones (Stick) Negative mg/dL (NEG) Urine Blood Negative (NEG) Urine Nitrite Negative (NEG) Urine Bilirubin Negative (NEG) Urine Urobilinogen Dipstick 0.2 mg/dL (0.2 mg/dL) Urine Leukocyte Esterase Moderate (NEG) Urine RBC 0 /HPF (0-2) Urine WBC 20-40 /HPF (0-4) Urine Squamous Epithelial Cells Mod /LPF Urine Bacteria Few /HPF (0-FEW) Urine Mucus Mod /LPF VTE Prophylaxis Ordered VTE Prophylaxis Devices: No VTE Pharmacological Prophylaxi: Yes Assessment/Plan Assessment/Plan shortness of breath with cough and dyspnea and new hypoxia, r/o COVID, pt is PUI if COVID neg, will CT chest high res, CXR is poss interstitial disease, also seen on CT abd from 3 weeks ago, poss stable hyperthyroid, recent diagnosis CAD, plavix depression and anxiety and insomnia, stable weakness, pt and OT to start if covid neg Justifications for Admission Other Justification KATELIN GERBER MD Oct 14, 2020 19:18
[2020-10-14] MEDS ORDERED: DONEPEZIL HCL 10 MG TABLET. PO SCH (21:00)
[2020-10-14] MEDS: ATORVASTATIN CALCIUM 40 MG TABLET. PO SCH (21:02)
[2020-10-14] MEDS: QUEtiapine 100 MG TABLET. PO SCH (21:02)
[2020-10-14] MEDS: LACTOBACILLUS RHAMNOSUS GG 1 CAPSULE. PO SCH (21:02)
[2020-10-14 23:16] VITALS: BP 128/44
[2020-10-15 03:45] VITALS: BP 147/52
[2020-10-15 07:00] VITALS: BP 159/57
[2020-10-15] MEDS: ENOXAPARIN 40 MG/0.4 ML SYRINGE. SQ SCH (08:07)
[2020-10-15] MEDS: CETIRIZINE HCL 10 MG TABLET. PO SCH (08:08)
[2020-10-15] MEDS: LOSARTAN POTASSIUM 25 MG TABLET. PO SCH (08:08)
[2020-10-15] MEDS: methIMAzole 10 MG TABLET PO SCH (08:08)
[2020-10-15] MEDS: CLOPIDOGREL BISULFATE 75 MG TABLET PO SCH (08:08)
[2020-10-15] MEDS: LACTOBACILLUS RHAMNOSUS GG 1 CAPSULE. PO SCH ×2 (08:08→20:39)
[2020-10-15] MEDS: SERTRALINE 25 MG TABLET. PO SCH (08:08)
--- NOTE | 2020-10-15 08:39 | PDOC ---
[employer] PROGRESS NOTE Date of Service DOS: DATE: 10/15/20 TIME: 08:25 Chief Complaint Chief Complaint A/P: Shortness of breath weakness and falls and weight loss dementia with behavioral disorder, sundowning, Hallucinations nightly, delirium, with behavior poor self care at home, rodent infestation depression may be poorly controlled hyperthyroid, on tapazole History of Present Illness History of Present Illness Ms Schaeffer is a 79 yo F w/ PMHx osteoarthritis, COPD, Dementia, Diabetes-Type II, Hypertension, SSS s/p PPM, diabetic neuropathy who presents to ED via EMS from home on 10/14/20 due to progressive shortness of breath. EMS reports that the patient's home health nurse called, from the patient's assisted living facility where she lives alone, due to frequent falls and hypoxia with O2 saturation < 88% on room air, she arrived 92% on 2L NCO2. She has had a productive brown cough for at least a week with dyspnea on exertion per home health. Patient denies any chest pain, palpitations, nausea, vomiting, diarrhea, abdominal pain, or dizziness. She denies any fever, swelling of her extremities, body aches, or rash. Patient does not wear oxygen at home. She received her two COVID-19 immunizations already. Chest radiograph with bilateral infiltrates She was hospitalized for weakness, sundowning and frequent falls 3 weeks ago and was discharged with home health and gait training program. Afebrile overnight. Still coughing up thick brownish sputum. Despite elevated procalcitonin I discussed with pulmonology to probably continue IV antibiotics. She still fairly confused. On 2 L nasal cannula oxygen. Vitals/I&O Vitals/I&O: Vital Signs Date Time Temp Pulse Resp B/P (MAP) Pulse Ox O2 Delivery O2 Flow Rate FiO2 10/15/20 08:08 63 159/57 10/15/20 07:00 97.9 23 94 Nasal Cannula 3.0 97.9 I & O 10/14/20 10/14/20 10/15/20 15:00 23:00 07:00 Intake Total 120 ml 390 ml Balance 120 ml 390 ml Physical Exam General: Alert, Oriented X3, Cooperative, mild distress Abdomen: Normal bowel sounds, Soft Extremities: No edema, Normal pulses Skin: No significant lesion Labs Labs: Laboratory Tests Test 10/14/20 13:30 3/30/21 14:33 White Blood Count 9.8 x10^3/uL (4.0-11.0) Red Blood Count 4.12 x10^6/uL (3.50-5.40) Hemoglobin 11.0 g/dL (12.0-15.5) Hematocrit 33.1 % (36.0-47.0) Mean Corpuscular Volume 80 fL (79-100) Mean Corpuscular Hemoglobin 27 pg (25-35) Mean Corpuscular Hemoglobin Concent 33 g/dL (31-37) Red Cell Distribution Width 15.3 % (11.5-14.5) Platelet Count 287 x10^3/uL (140-400) Neutrophils (%) (Auto) 71 % (31-73) Lymphocytes (%) (Auto) 18 % (24-48) Monocytes (%) (Auto) 7 % (0-9) Eosinophils (%) (Auto) 3 % (0-3) Basophils (%) (Auto) 1 % (0-3) Neutrophils # (Auto) 7.0 x10^3/uL (1.8-7.7) Lymphocytes # (Auto) 1.7 x10^3/uL (1.0-4.8) Monocytes # (Auto) 0.7 x10^3/uL (0.0-1.1) Eosinophils # (Auto) 0.3 x10^3/uL (0.0-0.7) Basophils # (Auto) 0.1 x10^3/uL (0.0-0.2) D-Dimer (Kay) < 0.27 ug/mlFEU Sodium Level 142 mmol/L (136-145) Potassium Level 4.8 mmol/L (3.5-5.1) Chloride Level 105 mmol/L (98-107) Carbon Dioxide Level 26 mmol/L (21-32) Anion Gap 11 (6-14) Blood Urea Nitrogen 22 mg/dL (7-20) Creatinine 1.2 mg/dL (0.6-1.0) Estimated GFR (Cockcroft-Gault) 43.4 BUN/Creatinine Ratio 18 (6-20) Glucose Level 124 mg/dL (70-99) Calcium Level 8.7 mg/dL (8.5-10.1) Magnesium Level 1.9 mg/dL (1.8-2.4) Total Bilirubin 0.2 mg/dL (0.2-1.0) Aspartate Amino Transf (AST/SGOT) 15 U/L (15-37) Alanine Aminotransferase (ALT/SGPT) 11 U/L (14-59) Alkaline Phosphatase 76 U/L (46-116) Creatine Kinase 45 U/L (26-192) Creatine Kinase MB (Mass) 0.8 ng/mL (0.0-3.6) Creatine Kinase MB Relative Index 1.8 % (0-4) Troponin I Quantitative < 0.017 ng/mL (0.000-0.055) DD-Irs-W-Type Natriuretic Peptide 715 pg/mL (0-449) Total Protein 6.6 g/dL (6.4-8.2) Albumin 3.1 g/dL (3.4-5.0) Albumin/Globulin Ratio 0.9 (1.0-1.7) Lipase 60 U/L (73-393) Urine Collection Type Unknown Urine Color Yellow Urine Clarity Clear Urine pH 5.5 (<5.0-8.0) Urine Specific [place] 1.025 (1.000-1.030) Urine Protein 30 mg/dL (NEG-TRACE) Urine Glucose (UA) Negative mg/dL (NEG) Urine Ketones (Stick) Negative mg/dL (NEG) Urine Blood Negative (NEG) Urine Nitrite Negative (NEG) Urine Bilirubin Negative (NEG) Urine Urobilinogen Dipstick 0.2 mg/dL (0.2 mg/dL) Urine Leukocyte Esterase Moderate (NEG) Urine RBC 0 /HPF (0-2) Urine WBC 20-40 /HPF (0-4) Urine Squamous Epithelial Cells Mod /LPF Urine Bacteria Few /HPF (0-FEW) Urine Mucus Mod /LPF Assessment and Plan Assessmemt and Plan Problems Medical Problems: (1) Shortness of breath Status: Acute (2) UTI (urinary tract infection) Status: Acute Comment Review of Relevant I have reviewed the following items alex (where applicable) has been applied. Medications: Current Medications Medications (Trade) Dose Ordered Sig/Bronson Route PRN Reason Start Time Stop Time Status Last Admin Dose Admin Ceftriaxone Sodium (Rocephin) 1 gm 1X ONCE IVP 10/14/20 15:30 10/14/20 15:31 DC 10/14/20 16:02 Cetirizine HCl (ZyrTEC) 10 mg DAILY PO 10/15/20 09:00 10/15/20 08:08 Clopidogrel Bisulfate (Plavix) 75 mg DAILY PO 10/15/20 09:00 10/15/20 08:08 Donepezil HCl (Aricept) 10 mg HS PO 10/14/20 21:00 10/14/20 21:02 Losartan Potassium (Cozaar) 25 mg DAILY PO 10/15/20 09:00 10/15/20 08:08 Quetiapine Fumarate (SEROquel) 100 mg QHS PO 10/14/20 21:00 10/14/20 21:02 Sertraline HCl (Zoloft) 25 mg DAILY PO 10/15/20 09:00 10/15/20 08:08 Lactobacillus Rhamnosus (Culturelle) 1 cap BID PO 10/14/20 21:00 10/15/20 08:08 Methimazole (Tapazole) 5 mg DAILY PO 10/15/20 09:00 10/15/20 08:08 Atorvastatin Calcium (Lipitor) 40 mg QHS PO 10/14/20 21:00 10/14/20 21:02 Enoxaparin Sodium (Lovenox 40mg Syringe) 40 mg Q24H SQ 10/15/20 09:00 10/15/20 08:07 Zolpidem Tartrate (Ambien) 5 mg PRN QHS PRN PO INSOMNIA 10/14/20 18:30 10/14/20 21:02 Images: Chest radiograph: Cardiac mediastinal silhouette is similar to prior with calcific atherosclerosis as well as pacemaker. There are some degenerative changes of the bilateral shoulders and acromioclavicular joints. Interstitial and alveolar opacities are seen throughout the bilateral lungs in a similar distribution compared to prior IMPRESSION: * Persistent interstitial and groundglass opacities bilaterally which could be from edema or infiltrate. Justifications for Admission Other Justification FERNANDA TRINIDAD MD Oct 15, 2020 08:39
--- NOTE | 2020-10-15 10:35 | CONS ---
DATE OF CONSULTATION: PULMONARY CONSULTATION ATTENDING PHYSICIAN: Morena Barnhart MD. REASON FOR CONSULTATION: Dyspnea, respiratory failure, abnormal chest x-ray. HISTORY OF PRESENT ILLNESS: The patient is a 79-year-old female who smoked for 60 years before quitting in 2001. She has likely underlying severe chronic obstructive pulmonary disease. She was brought into the hospital with hypoxia and dyspnea. She also has a cough, which has been productive of milky white to yellow sputum production. The patient was hospitalized about 3 weeks ago. At that time, her chest x-ray had shown interstitial infiltrates. She had another chest x-ray during this hospitalization and shows persistent bilateral interstitial infiltrates. As a result, I have been asked to see her for further evaluation. She has no history of deep vein thrombosis or pulmonary embolism. She denies any exposure to COVID. She said she has received both the vaccines. She is not on home oxygen. Currently, she is requiring 2 liters of oxygen. PAST MEDICAL HISTORY: Significant for history of hypertension, history of COPD, could be severe, history of hyperthyroidism. PAST SURGICAL HISTORY: No recent surgeries. ALLERGIES: None. FAMILY HISTORY: Noncontributory to lungs. SOCIAL HISTORY: Quit tobacco in 2001, before that smoked for 60 years. MEDICATIONS: Reviewed as listed in the [facility]AD. She received Rocephin yesterday in the ER. REVIEW OF SYSTEMS: Twelve-point system obtained. Pertinent positives discussed in my history of present illness, otherwise noncontributory. All systems that were negative were reviewed as well. PHYSICAL EXAMINATION: VITAL SIGNS: Reviewed. She is afebrile. Her blood pressure is stable. She is not tachycardic. Pulse in the 60s, pulse ox 94% on 3 liters. NECK: Supple. LUNGS: With diminished breath sounds with few crackles. CARDIOVASCULAR: With a regular rate. ABDOMEN: Soft, nontender. EXTREMITIES: With no pitting edema. LABORATORY DATA: Reviewed. White cell count 9.8, hemoglobin 11.0, platelets are 287. BUN 22, creatinine 1.2. Her lipase is 60. Procalcitonin less than 0.10. IMPRESSION: 1. Acute hypoxic respiratory failure, secondary to multifactorial etiologies including combination of chronic obstructive pulmonary disease exacerbation, acute bronchitis/early pneumonia, although procalcitonin level is less than 0.10. Also cannot exclude the possibility of diastolic or systolic congestive heart failure. 2. Underlying chronic obstructive pulmonary disease, could be severe. She smoked for 60 years. Not on home oxygen. 3. Mild acute kidney injury. 4. Abnormal chest x-ray with persistent interstitial infiltrates compared to x-ray from 09/19/2020. Her echo in 2019 had shown no significant left ventricular dysfunction. EF was 55-60%. She would benefit from another repeat echo to rule out any congestive heart failure component contributing to her abnormal x-ray. RECOMMENDATIONS: 1. We will continue with present oxygen. Keep saturation 92 and above. 2. Continue empiric antibiotics for now. 3. Noncontrast CT chest to assess for interstitial infiltrates. 4. Echocardiogram. 5. Lovenox for DVT prophylaxis. 6. Continue methimazole for hyperthyroidism. 7. We will follow along with you. Discussed with RN. XAVIER GORDON MD DR: SLICK/gonzalo JOB#: [id number] / [id number]
[2020-10-15 11:00] VITALS: BP 132/37
--- NOTE | 2020-10-15 11:41 | NUR ---
KAYLEN following for discharge planning. Spoke with RN and reviewed chart. KAYLEN met with pt today and spoke with daughter Tanisha ([phone]) at pt request. Pt resides in independent fdc (not [facility]) at [facility] with [facility] . Pt currently COVID pending (had vaccines per chart review) and on 2l 02. Pt does not have home 02 at this time. PT/OT to evaluate. Pt recently discharged home from [facility], self-care. Pt requiring more assistance and pt and pt's daughter would like to apply for Medicaid for future move to LTC. Referral to [employer]. KAYLEN printed clinicals and provided to Radha with [facility] for possible resumption of care. Patient choice of vendor form completed. Pt may need a 6 min walk prior to discharge. Pulmonary following. KAYLEN following. Addendum: 10/15/20 at 1203 by CHEYANNE ABDULLAHI Pt on IV Rocephin. Addendum: 10/15/20 at 1521 by CHEYANNE ABDULLAHI Error: Pt discharged home with [facility] not self-care after prior hospitalization.
[2020-10-15 15:00] VITALS: BP 121/47
[2020-10-15] MEDS: cefTRIAXone IV Push 1 GM VIAL. IVP SCH (15:21)
[2020-10-15 19:51] VITALS: BP 120/56
[2020-10-15] MEDS: ATORVASTATIN CALCIUM 40 MG TABLET. PO SCH (20:40)
[2020-10-15] MEDS: QUEtiapine 100 MG TABLET. PO SCH (20:40)
[2020-10-15 23:39] VITALS: BP 116/44
[2020-10-16 03:43] VITALS: BP 126/52
[2020-10-16 07:00] VITALS: BP 139/60
[2020-10-16] MEDS: LACTOBACILLUS RHAMNOSUS GG 1 CAPSULE. PO SCH ×2 (08:50→21:06)
[2020-10-16] MEDS: ENOXAPARIN 40 MG/0.4 ML SYRINGE. SQ SCH (08:51)
[2020-10-16] MEDS: CLOPIDOGREL BISULFATE 75 MG TABLET PO SCH (08:51)
[2020-10-16] MEDS: methIMAzole 10 MG TABLET PO SCH (08:51)
[2020-10-16] MEDS: SERTRALINE 25 MG TABLET. PO SCH (08:51)
[2020-10-16] MEDS: CETIRIZINE HCL 10 MG TABLET. PO SCH (08:51)
[2020-10-16] MEDS: LOSARTAN POTASSIUM 25 MG TABLET. PO SCH (08:51)
[2020-10-16 11:00] VITALS: BP 122/51
--- NOTE | 2020-10-16 11:06 | PDOC ---
[employer] PROGRESS NOTE Date of Service DOS: DATE: 10/16/20 TIME: 11:05 Chief Complaint Chief Complaint A/P: Shortness of breath weakness and falls and weight loss dementia with behavioral disorder, sundowning, Hallucinations nightly, delirium, with behavior poor self care at home, rodent infestation depression may be poorly controlled hyperthyroid, on tapazole History of Present Illness History of Present Illness Ms Schaeffer is a 79 yo F w/ PMHx osteoarthritis, COPD, Dementia, Diabetes-Type II, Hypertension, SSS s/p PPM, diabetic neuropathy who presents to ED via EMS from home on 10/14/20 due to progressive shortness of breath. EMS reports that the patient's home health nurse called, from the patient's assisted living facility where she lives alone, due to frequent falls and hypoxia with O2 saturation < 88% on room air, she arrived 92% on 2L NCO2. She has had a productive brown cough for at least a week with dyspnea on exertion per home health. Patient denies any chest pain, palpitations, nausea, vomiting, diarrhea, abdominal pain, or dizziness. She denies any fever, swelling of her extremities, body aches, or rash. Patient does not wear oxygen at home. She received her two COVID-19 immunizations already. Chest radiograph with bilateral infiltrates She was hospitalized for weakness, sundowning and frequent falls 3 weeks ago and was discharged with home health and gait training program. 10/15: Afebrile overnight. Still coughing up thick brownish sputum. Despite elevated procalcitonin I discussed with pulmonology to probably continue IV antibiotics. She still fairly confused. On 2 L nasal cannula oxygen. Afebrile. Awaiting CT chest. COVID-19 pending. Overall she thinks she is feeling better. She is asked for us to speak with her daughter still on 2 L nasal cannula oxygen but she took it off to eat lunch. I discussed with pulmonology. Vitals/I&O Vitals/I&O: Vital Signs Date Time Temp Pulse Resp B/P (MAP) Pulse Ox O2 Delivery O2 Flow Rate FiO2 10/16/20 11:00 97.8 62 18 122/51 (74) 96 Nasal Cannula 3.0 97.8 I & O 10/15/20 10/15/20 10/16/20 15:00 23:00 07:00 Intake Total 360 ml 560 ml 0 ml Balance 360 ml 560 ml 0 ml Physical Exam General: Alert, Oriented X3, Cooperative, mild distress Abdomen: Normal bowel sounds, Soft Extremities: No edema, Normal pulses Skin: No significant lesion Assessment and Plan Assessmemt and Plan Problems Medical Problems: (1) Shortness of breath Status: Acute (2) UTI (urinary tract infection) Status: Acute Comment Review of Relevant I have reviewed the following items alex (where applicable) has been applied. Medications: Current Medications Medications (Trade) Dose Ordered Sig/Bronson Route PRN Reason Start Time Stop Time Status Last Admin Dose Admin Ceftriaxone Sodium (Rocephin) 1 gm Q24H IVP 10/15/20 16:00 10/15/20 15:21 Justifications for Admission Other Justification FERNANDA TRINIDAD MD Oct 16, 2020 11:06
--- NOTE | 2020-10-16 11:50 | PDOC ---
PULMONARY PROGRESS NOTES DATE: 10/16/20 TIME: 11:48 Subjective feels better Vitals Vital Signs Date Time Temp Pulse Resp B/P (MAP) Pulse Ox O2 Delivery O2 Flow Rate FiO2 10/16/20 11:00 97.8 62 18 122/51 (74) 96 Nasal Cannula 3.0 97.8 General: Alert, No acute distress Lungs: Clear Abdomen: Soft Neuro Exam: Alert Extremities: No Edema Skin: Warm Labs Laboratory Tests Test 10/14/20 12:30 10/14/20 13:30 10/14/20 14:33 Procalcitonin < 0.10 ng/mL (0.00-0.10) White Blood Count 9.8 x10^3/uL (4.0-11.0) Red Blood Count 4.12 x10^6/uL (3.50-5.40) Hemoglobin 11.0 g/dL (12.0-15.5) Hematocrit 33.1 % (36.0-47.0) Mean Corpuscular Volume 80 fL (79-100) Mean Corpuscular Hemoglobin 27 pg (25-35) Mean Corpuscular Hemoglobin Concent 33 g/dL (31-37) Red Cell Distribution Width 15.3 % (11.5-14.5) Platelet Count 287 x10^3/uL (140-400) Neutrophils (%) (Auto) 71 % (31-73) Lymphocytes (%) (Auto) 18 % (24-48) Monocytes (%) (Auto) 7 % (0-9) Eosinophils (%) (Auto) 3 % (0-3) Basophils (%) (Auto) 1 % (0-3) Neutrophils # (Auto) 7.0 x10^3/uL (1.8-7.7) Lymphocytes # (Auto) 1.7 x10^3/uL (1.0-4.8) Monocytes # (Auto) 0.7 x10^3/uL (0.0-1.1) Eosinophils # (Auto) 0.3 x10^3/uL (0.0-0.7) Basophils # (Auto) 0.1 x10^3/uL (0.0-0.2) D-Dimer (Kay) < 0.27 ug/mlFEU Sodium Level 142 mmol/L (136-145) Potassium Level 4.8 mmol/L (3.5-5.1) Chloride Level 105 mmol/L (98-107) Carbon Dioxide Level 26 mmol/L (21-32) Anion Gap 11 (6-14) Blood Urea Nitrogen 22 mg/dL (7-20) Creatinine 1.2 mg/dL (0.6-1.0) Estimated GFR (Cockcroft-Gault) 43.4 BUN/Creatinine Ratio 18 (6-20) Glucose Level 124 mg/dL (70-99) Calcium Level 8.7 mg/dL (8.5-10.1) Magnesium Level 1.9 mg/dL (1.8-2.4) Total Bilirubin 0.2 mg/dL (0.2-1.0) Aspartate Amino Transf (AST/SGOT) 15 U/L (15-37) Alanine Aminotransferase (ALT/SGPT) 11 U/L (14-59) Alkaline Phosphatase 76 U/L (46-116) Creatine Kinase 45 U/L (26-192) Creatine Kinase MB (Mass) 0.8 ng/mL (0.0-3.6) Creatine Kinase MB Relative Index 1.8 % (0-4) Troponin I Quantitative < 0.017 ng/mL (0.000-0.055) IC-Xdi-T-Type Natriuretic Peptide 715 pg/mL (0-449) Total Protein 6.6 g/dL (6.4-8.2) Albumin 3.1 g/dL (3.4-5.0) Albumin/Globulin Ratio 0.9 (1.0-1.7) Lipase 60 U/L (73-393) Urine Collection Type Unknown Urine Color Yellow Urine Clarity Clear Urine pH 5.5 (<5.0-8.0) Urine Specific [place] 1.025 (1.000-1.030) Urine Protein 30 mg/dL (NEG-TRACE) Urine Glucose (UA) Negative mg/dL (NEG) Urine Ketones (Stick) Negative mg/dL (NEG) Urine Blood Negative (NEG) Urine Nitrite Negative (NEG) Urine Bilirubin Negative (NEG) Urine Urobilinogen Dipstick 0.2 mg/dL (0.2 mg/dL) Urine Leukocyte Esterase Moderate (NEG) Urine RBC 0 /HPF (0-2) Urine WBC 20-40 /HPF (0-4) Urine Squamous Epithelial Cells Mod /LPF Urine Bacteria Few /HPF (0-FEW) Urine Mucus Mod /LPF Medications Active Scripts Medications Dose Route/Sig Max Daily Dose Days Date Category Seroquel (Quetiapine Fumarate) 100 Mg Tablet 1 Tab PO QHS 09/21/20 Rx Dicyclomine Hcl 10 Mg Capsule 1 Cap PO PRN Q6HRS 09/20/20 Reported Acidophilus Lactobacilli (Lactobacillus Acidophilus) 1 Each Capsule 1 Cap PO BID 30 09/20/20 Reported Cetirizine Hcl 10 Mg Tablet 1 Tab PO DAILY 09/20/20 Reported Crestor (Rosuvastatin Calcium) 5 Mg Tablet 10 Mg PO DAILY 09/20/20 Reported Tapazole (Methimazole) 5 Mg Tablet 5 Mg PO DAILY 09/20/20 Reported Clopidogrel (Clopidogrel Bisulfate) 75 Mg Tablet 75 Mg PO DAILY 09/20/20 Reported Donepezil Hcl 10 Mg Tablet 10 Mg PO HS 09/20/20 Reported Sertraline Hcl 25 Mg Tablet 25 Mg PO DAILY 09/20/20 Reported Losartan Potassium 25 Mg Tablet 25 Mg PO DAILY 09/20/20 Reported Impression . 1. Acute hypoxic respiratory failure, secondary to multifactorial etiologies including combination of chronic obstructive pulmonary disease exacerbation, acute bronchitis/early pneumonia, although procalcitonin level is less than 0.10. Also cannot exclude the possibility of diastolic or systolic congestive heart failure. 2. Underlying chronic obstructive pulmonary disease, could be severe. She smoked for 60 years. Not on home oxygen. 3. Mild acute kidney injury. 4. Abnormal chest x-ray with persistent interstitial infiltrates compared to x-ray from 09/19/2020. Her echo in 2019 had shown no significant left ventricular dysfunction. EF was 55-60%. She would benefit from another repeat echo to rule out any congestive heart failure component contributing to her abnormal x-ray. Plan . 1. We will continue with present oxygen. Keep saturation 92 and above. 2. Continue empiric antibiotics for now. 3. Noncontrast CT chest to assess for interstitial infiltrates. 4. Echocardiogram. 5. Lovenox for DVT prophylaxis. 6. Continue methimazole for hyperthyroidism. 7. We will follow along with you. Discussed with MAGALIS. XAVIER GORDON MD Oct 16, 2020 11:50
[2020-10-16 15:00] VITALS: BP 104/44
[2020-10-16] MEDS: cefTRIAXone IV Push 1 GM VIAL. IVP SCH (17:05)
[2020-10-16 19:00] VITALS: BP 137/48
--- NOTE | 2020-10-16 20:10 | NUR ---
Pt in bed poc explained assessment completed vss pt denied pain will resume care and continue to monitor pt.m call light in reach.
[2020-10-16] MEDS: ATORVASTATIN CALCIUM 40 MG TABLET. PO SCH (21:06)
[2020-10-16] MEDS: QUEtiapine 100 MG TABLET. PO SCH (21:06)
[2020-10-16 22:53] VITALS: BP 119/48
[2020-10-17 03:19] VITALS: BP 118/49
[2020-10-17 06:17] LABS: BASO # 0.1 x10^3/uL (0.0-0.2); BASO % 1 % (0-3); EOS # 0.4 x10^3/uL (0.0-0.7); EOS % 4 % (0-3); HEMATOCRIT 32.9 % (36.0-47.0); HEMOGLOBIN 10.9 g/dL (12.0-15.5); LYMPH # 2.1 x10^3/uL (1.0-4.8); LYMPH % 22 % (24-48); MEAN CORPUSCULAR HEMOGLOBIN 27 pg (25-35); MEAN CORPUSCULAR HGB CONC 33 g/dL (31-37); MEAN CORPUSCULAR VOLUME 81 fL (79-100); MONO # 0.9 x10^3/uL (0.0-1.1); MONO % 10 % (0-9); NEUT # 6.3 x10^3/uL (1.8-7.7); NEUT % 64 % (31-73); PLATELET COUNT 280 x10^3/uL (140-400); RED BLOOD COUNT 4.06 x10^6/uL (3.50-5.40); RED CELL DISTRIBUTION WIDTH 15.2 % (11.5-14.5); WHITE BLOOD COUNT 9.8 x10^3/uL (4.0-11.0)
[2020-10-17 06:24] LABS: CALCIUM 8.8 mg/dL (8.5-10.1); CREATININE 1.3 mg/dL (0.6-1.0); GFR 39.6; POTASSIUM 4.6 mmol/L (3.5-5.1)
[2020-10-17 07:00] VITALS: BP 127/52
[2020-10-17] MEDS: methIMAzole 10 MG TABLET PO SCH (09:14)
[2020-10-17] MEDS: CLOPIDOGREL BISULFATE 75 MG TABLET PO SCH (09:14)
[2020-10-17] MEDS: LOSARTAN POTASSIUM 25 MG TABLET. PO SCH (09:15)
[2020-10-17] MEDS: LACTOBACILLUS RHAMNOSUS GG 1 CAPSULE. PO SCH ×2 (09:15→20:14)
[2020-10-17] MEDS: SERTRALINE 25 MG TABLET. PO SCH (09:15)
[2020-10-17] MEDS: CETIRIZINE HCL 10 MG TABLET. PO SCH (09:15)
[2020-10-17] MEDS: ENOXAPARIN 40 MG/0.4 ML SYRINGE. SQ SCH (09:16)
--- NOTE | 2020-10-17 10:21 | PDOC ---
[employer] PROGRESS NOTE Date of Service DOS: DATE: 10/17/20 TIME: 10:19 Chief Complaint Chief Complaint A/P: Shortness of breath weakness and falls and weight loss dementia with behavioral disorder, sundowning, Hallucinations nightly, delirium, with behavior poor self care at home, rodent infestation depression may be poorly controlled hyperthyroid, on tapazole History of Present Illness History of Present Illness Ms Schaeffer is a 79 yo F w/ PMHx osteoarthritis, COPD, Dementia, Diabetes-Type II, Hypertension, SSS s/p PPM, diabetic neuropathy who presents to ED via EMS from home on 10/14/20 due to progressive shortness of breath. EMS reports that the patient's home health nurse called, from the patient's assisted living facility where she lives alone, due to frequent falls and hypoxia with O2 saturation < 88% on room air, she arrived 92% on 2L NCO2. She has had a productive brown cough for at least a week with dyspnea on exertion per home health. Patient denies any chest pain, palpitations, nausea, vomiting, diarrhea, abdominal pain, or dizziness. She denies any fever, swelling of her extremities, body aches, or rash. Patient does not wear oxygen at home. She received her two COVID-19 immunizations already. Chest radiograph with bilateral infiltrates She was hospitalized for weakness, sundowning and frequent falls 3 weeks ago and was discharged with home health and gait training program. 10/15: Afebrile overnight. Still coughing up thick brownish sputum. Despite elevated procalcitonin I discussed with pulmonology to probably continue IV antibiotics. She still fairly confused. On 2 L nasal cannula oxygen. 10/16: Afebrile. Awaiting CT chest. COVID-19 pending. Overall she thinks she is feeling better. She is asked for us to speak with her daughter still on 2 L nasal cannula oxygen but she took it off to eat lunch. I discussed with pulmonology. CT chest this morning. Afebrile. BUN up to 30, CR 1.3. She has no complaints. Vitals/I&O Vitals/I&O: Vital Signs Date Time Temp Pulse Resp B/P (MAP) Pulse Ox O2 Delivery O2 Flow Rate FiO2 10/17/20 09:15 67 127/52 10/17/20 08:00 Nasal Cannula 2.0 10/17/20 07:00 98.0 18 96 98.0 I & O 10/16/20 10/16/20 10/17/20 15:00 23:00 07:00 Intake Total 0 ml 0 ml Balance 0 ml 0 ml Physical Exam General: Alert, Cooperative, mild distress Lungs: Clear Abdomen: Normal bowel sounds, Soft Extremities: No edema, Normal pulses Skin: No significant lesion Labs Labs: Laboratory Tests Test 10/17/20 04:30 White Blood Count 9.8 x10^3/uL (4.0-11.0) Red Blood Count 4.06 x10^6/uL (3.50-5.40) Hemoglobin 10.9 g/dL (12.0-15.5) Hematocrit 32.9 % (36.0-47.0) Mean Corpuscular Volume 81 fL (79-100) Mean Corpuscular Hemoglobin 27 pg (25-35) Mean Corpuscular Hemoglobin Concent 33 g/dL (31-37) Red Cell Distribution Width 15.2 % (11.5-14.5) Platelet Count 280 x10^3/uL (140-400) Neutrophils (%) (Auto) 64 % (31-73) Lymphocytes (%) (Auto) 22 % (24-48) Monocytes (%) (Auto) 10 % (0-9) Eosinophils (%) (Auto) 4 % (0-3) Basophils (%) (Auto) 1 % (0-3) Neutrophils # (Auto) 6.3 x10^3/uL (1.8-7.7) Lymphocytes # (Auto) 2.1 x10^3/uL (1.0-4.8) Monocytes # (Auto) 0.9 x10^3/uL (0.0-1.1) Eosinophils # (Auto) 0.4 x10^3/uL (0.0-0.7) Basophils # (Auto) 0.1 x10^3/uL (0.0-0.2) Sodium Level 140 mmol/L (136-145) Potassium Level 4.6 mmol/L (3.5-5.1) Chloride Level 105 mmol/L (98-107) Carbon Dioxide Level 28 mmol/L (21-32) Anion Gap 7 (6-14) Blood Urea Nitrogen 30 mg/dL (7-20) Creatinine 1.3 mg/dL (0.6-1.0) Estimated GFR (Cockcroft-Gault) 39.6 Glucose Level 98 mg/dL (70-99) Calcium Level 8.8 mg/dL (8.5-10.1) Assessment and Plan Assessmemt and Plan Problems Medical Problems: (1) Shortness of breath Status: Acute (2) UTI (urinary tract infection) Status: Acute Comment Review of Relevant I have reviewed the following items alex (where applicable) has been applied. Justifications for Admission Other Justification FERNANDA TRINIDAD MD Oct 17, 2020 10:21
--- NOTE | 2020-10-17 10:48 | PDOC ---
PULMONARY PROGRESS NOTES DATE: 10/17/20 TIME: 10:45 Subjective feels better Vitals Vital Signs Date Time Temp Pulse Resp B/P (MAP) Pulse Ox O2 Delivery O2 Flow Rate FiO2 10/17/20 09:15 67 127/52 10/17/20 08:00 Nasal Cannula 2.0 10/17/20 07:00 98.0 18 96 98.0 General: Alert, No acute distress Lungs: Clear Abdomen: Soft Neuro Exam: Alert Extremities: No Edema Skin: Warm Labs Laboratory Tests Test 10/17/20 04:30 White Blood Count 9.8 x10^3/uL (4.0-11.0) Red Blood Count 4.06 x10^6/uL (3.50-5.40) Hemoglobin 10.9 g/dL (12.0-15.5) Hematocrit 32.9 % (36.0-47.0) Mean Corpuscular Volume 81 fL (79-100) Mean Corpuscular Hemoglobin 27 pg (25-35) Mean Corpuscular Hemoglobin Concent 33 g/dL (31-37) Red Cell Distribution Width 15.2 % (11.5-14.5) Platelet Count 280 x10^3/uL (140-400) Neutrophils (%) (Auto) 64 % (31-73) Lymphocytes (%) (Auto) 22 % (24-48) Monocytes (%) (Auto) 10 % (0-9) Eosinophils (%) (Auto) 4 % (0-3) Basophils (%) (Auto) 1 % (0-3) Neutrophils # (Auto) 6.3 x10^3/uL (1.8-7.7) Lymphocytes # (Auto) 2.1 x10^3/uL (1.0-4.8) Monocytes # (Auto) 0.9 x10^3/uL (0.0-1.1) Eosinophils # (Auto) 0.4 x10^3/uL (0.0-0.7) Basophils # (Auto) 0.1 x10^3/uL (0.0-0.2) Sodium Level 140 mmol/L (136-145) Potassium Level 4.6 mmol/L (3.5-5.1) Chloride Level 105 mmol/L (98-107) Carbon Dioxide Level 28 mmol/L (21-32) Anion Gap 7 (6-14) Blood Urea Nitrogen 30 mg/dL (7-20) Creatinine 1.3 mg/dL (0.6-1.0) Estimated GFR (Cockcroft-Gault) 39.6 Glucose Level 98 mg/dL (70-99) Calcium Level 8.8 mg/dL (8.5-10.1) Laboratory Tests Test 10/17/20 04:30 White Blood Count 9.8 x10^3/uL (4.0-11.0) Red Blood Count 4.06 x10^6/uL (3.50-5.40) Hemoglobin 10.9 g/dL (12.0-15.5) Hematocrit 32.9 % (36.0-47.0) Mean Corpuscular Volume 81 fL (79-100) Mean Corpuscular Hemoglobin 27 pg (25-35) Mean Corpuscular Hemoglobin Concent 33 g/dL (31-37) Red Cell Distribution Width 15.2 % (11.5-14.5) Platelet Count 280 x10^3/uL (140-400) Neutrophils (%) (Auto) 64 % (31-73) Lymphocytes (%) (Auto) 22 % (24-48) Monocytes (%) (Auto) 10 % (0-9) Eosinophils (%) (Auto) 4 % (0-3) Basophils (%) (Auto) 1 % (0-3) Neutrophils # (Auto) 6.3 x10^3/uL (1.8-7.7) Lymphocytes # (Auto) 2.1 x10^3/uL (1.0-4.8) Monocytes # (Auto) 0.9 x10^3/uL (0.0-1.1) Eosinophils # (Auto) 0.4 x10^3/uL (0.0-0.7) Basophils # (Auto) 0.1 x10^3/uL (0.0-0.2) Sodium Level 140 mmol/L (136-145) Potassium Level 4.6 mmol/L (3.5-5.1) Chloride Level 105 mmol/L (98-107) Carbon Dioxide Level 28 mmol/L (21-32) Anion Gap 7 (6-14) Blood Urea Nitrogen 30 mg/dL (7-20) Creatinine 1.3 mg/dL (0.6-1.0) Estimated GFR (Cockcroft-Gault) 39.6 Glucose Level 98 mg/dL (70-99) Calcium Level 8.8 mg/dL (8.5-10.1) Medications Active Scripts Medications Dose Route/Sig Max Daily Dose Days Date Category Seroquel (Quetiapine Fumarate) 100 Mg Tablet 1 Tab PO QHS 09/21/20 Rx Dicyclomine Hcl 10 Mg Capsule 1 Cap PO PRN Q6HRS 09/20/20 Reported Acidophilus Lactobacilli (Lactobacillus Acidophilus) 1 Each Capsule 1 Cap PO BID 30 09/20/20 Reported Cetirizine Hcl 10 Mg Tablet 1 Tab PO DAILY 09/20/20 Reported Crestor (Rosuvastatin Calcium) 5 Mg Tablet 10 Mg PO DAILY 09/20/20 Reported Tapazole (Methimazole) 5 Mg Tablet 5 Mg PO DAILY 09/20/20 Reported Clopidogrel (Clopidogrel Bisulfate) 75 Mg Tablet 75 Mg PO DAILY 09/20/20 Reported Donepezil Hcl 10 Mg Tablet 10 Mg PO HS 09/20/20 Reported Sertraline Hcl 25 Mg Tablet 25 Mg PO DAILY 09/20/20 Reported Losartan Potassium 25 Mg Tablet 25 Mg PO DAILY 09/20/[address] CHEST 10/17 reviewed diffuse GG/ Interstitial infiltrates Impression . 1. Acute hypoxic respiratory failure, secondary to multifactorial etiologies including combination of chronic obstructive pulmonary disease exacerbation, acute bronchitis/early pneumonia, although procalcitonin level is less than 0.10. Also cannot exclude the possibility of diastolic or systolic congestive heart failure. 2. Underlying chronic obstructive pulmonary disease, could be severe. She smoked for 60 years. Not on home oxygen. 3. Mild acute kidney injury. 4. Abnormal chest x-ray with persistent interstitial infiltrates compared to x-ray from 09/19/2020. Her echo in 2019 had shown no significant left ventricular dysfunction. EF was 55-60%. She would benefit from another repeat echo to rule out any congestive heart failure component contributing to her abnormal x-ray. Plan . 1. We will continue with present oxygen. Keep saturation 92 and above. 2. Continue empiric antibiotics for now. 3. Noncontrast CT chest reviewed. diffuse GG/ Interstitial infiltrates. ILD vs interstitial CHF/ ?pneumonia 4. Echocardiogram.P 5. Lovenox for DVT prophylaxis. 6. Continue methimazole for hyperthyroidism. 7. try lasix, check sed rate GORDON,XAVIER U MD Oct 17, 2020 10:47
[2020-10-17 11:00] VITALS: BP 115/47
[2020-10-17] MEDS ORDERED: IV NORMAL SALINE 1000ML BAG 1,000 ML IV ONE (12:00)
[2020-10-17] MEDS ORDERED: AMOX1TAB58 PO (12:53)
--- NOTE | 2020-10-17 12:54 | SNU/HH DC ---
DISCHARGE ORDERS DISCHARGE INFORMATION: DISCHARGE DATE: Oct 18, 2020 FINAL DIAGNOSIS Problems Medical Problems: (1) Shortness of breath Status: Acute (2) UTI (urinary tract infection) Status: Acute CONDITION ON DISCHARGE: Stable CODE STATUS: Code Status: Full ALF: SNF STAY <30 DAYS: Yes POST DISCHARGE ORDERS: ACTIVITY ORDERS: Activity as tolerated WEIGHT BEARING STATUS: As tolerated DIET AFTER DISCHARGE: ADA CHECKS AFTER DISCHARGE: CHECKS AFTER DISCHARGE: Check blood press - daily, Check your Temp as needed FOLLOW-UP: ADDITIONAL FOLLOW-UP: Pulmonology - Dr. Timmons/Claudio 30 days TREATMENT/EQUIPMENT ORDERS: ADAPTIVE EQUIPMENT NEEDED: None RESPIRATORY EQUIPMENT NEEDED: Oxygen Physical Therapy For: Evalulation/Treatment Occupational Therapy For: Evaluation/Treatment DISCHARGE MEDICATIONS: Home Meds Active Scripts Prednisone (PREDNISONE) 20 Mg Tablet, 40 MG PO DAILY for ILD for 10 Days, #15 TAB Prov:FERNANDA TRINIDAD MD 10/18/20 Amoxicillin/Potassium Clav (AUGMENTIN 500-125 TABLET) 1 Each Tablet, 1 TAB PO BID for Pneumonia for 7 Days, #14 TAB 0 Refills Prov:FERNANDA TRINIDAD MD 10/17/20 Quetiapine Fumarate (SEROQUEL) 100 Mg Tablet, 1 TAB PO QHS for sleep, #30 TAB 1 Refill Prov:KATELIN GERBER MD 09/21/20 Reported Medications Dicyclomine Hcl (DICYCLOMINE HCL) 10 Mg Capsule, 1 CAP PO PRN Q6HRS for pain, #100 CAP 3 Refills 09/20/20 Lactobacillus Acidophilus (Acidophilus Lactobacilli) 1 Each Capsule, 1 CAP PO BID for probiotic for 30 Days, #60 CAP 0 Refills 09/20/20 Cetirizine Hcl (CETIRIZINE HCL) 10 Mg Tablet, 1 TAB PO DAILY for allergy, #30 TAB 5 Refills 09/20/20 Rosuvastatin Calcium (CRESTOR) 5 Mg Tablet, 10 MG PO DAILY for FOR CHOLESTEROL, #30 TAB 0 Refills 09/20/20 Methimazole (TAPAZOLE) 5 Mg Tablet, 5 MG PO DAILY for thyroid, TAB 09/20/20 Clopidogrel Bisulfate (CLOPIDOGREL) 75 Mg Tablet, 75 MG PO DAILY for TO PREVENT BLOOD CLOTS, #30 TAB 0 Refills 09/20/20 Donepezil Hcl (DONEPEZIL HCL) 10 Mg Tablet, 10 MG PO HS for dementia, TAB 09/20/20 Sertraline Hcl (SERTRALINE HCL) 25 Mg Tablet, 25 MG PO DAILY for ANTI- DEPRESSANT, TAB 0 Refills 09/20/20 Losartan Potassium (Losartan Potassium) 25 Mg Tablet, 25 MG PO DAILY for htn, TAB 09/20/20 FERNANDA TRINIDAD MD Oct 17, 2020 12:54
--- NOTE | 2020-10-17 13:07 | RAD ---
CT THORAX WO History: Interstitial lung disease. Chest pain shortness of breath. Technique: Noncontrast CT of the chest was performed. Coronal and sagittal reconstructions were perfo rmed. Exposure: One or more of the following individualized dose reduction techniques were utilized for thi s examination: 1. Automated exposure control 2. Adjustment of the mA and/or kV according to patient size 3. Use of iterative reconstruction technique. Comparison: None Findings: Chest: Enlarged pretracheal lymph node measures 1.9 x 1.5 cm. Left thyroid nodule measures 2.5 cm. Mi ld atheromatous plaque within the aorta. Coronary artery calcifications. Multifocal groundglass opacities involving all lobes. There is associated septal thickening. No pneum othorax. No pleural effusion. No evidence of honeycombing. Mild bronchiectasis. 4 mm right upper lobe pulmonary nodule (series 3 image 13). Calcified pulmonary nodule, likely prior granulomatous disease. Upper abdomen: The imaged upper abdomen is unremarkable. Bones: Left glenohumeral DJD. Chronic appearing T3 and T4 compression fractures. Multilevel thoracic spondylosis. Impression: 1. Multifocal ground glass opacities bilaterally with septal thickening involving all lobes. In the acute setting findings may represent pulmonary edema or atypical infection. In the chronic setting fi ndings can be seen with nonspecific interstitial pneumonia. Recommend further clinical evaluation and follow-up. Comparison with prior imaging studies would also be of benefit. 2. Enlarged distal lymph nodes, potentially reactive. Recommend attention on follow-up. 3. Small right upper lobe pulmonary nodule. Recommend attention on follow-up. 4. Left thyroid nodule. Recommend ultrasound to further evaluate. Electronically signed by: Vladislav Upton DO (10/17/2020 1:05 PM) [id number]
[2020-10-17 15:00] VITALS: BP 113/38
--- NOTE | 2020-10-17 16:20 | NUR ---
KAYLEN following for discharge planning. Spoke with RN and reviewed chart. SW met with pt and pt's daughter. Pt and pt's daughter requesting referrals for SNU to [facility] Medicaid pending to be sent to [facility]. Referrals phoned and faxed. Patient choice of vendor form completed. COVID result came back negative. Marcus with [facility] accepted pt. Transportation arranged for 1300 on 10/18. Clinicals ready to be sent with patient. RN to call report and discharge orders to be sent on 10/18. Pt added to weekend discharge list. Pt's daughter verbalized understanding that she still needs to meet with [facility] on 10/20 to completed Medicaid application. KAYLEN to fax copy of completed Medicaid application to Marcus on 10/20. KAYLEN following. Addendum: 10/17/20 at 1630 by CHEYANNE ABDULLAHI Daughter Tanisha is the POA for HC per report of pt. Pt and pt's daughter requesting that coordination of care not be discussed with pt's youngest daughter Patience as she is more concerned about pt's money that pt's wellbeing. Update to staff.
[2020-10-17] MEDS: cefTRIAXone IV Push 1 GM VIAL. IVP SCH (17:28)
[2020-10-17 19:00] VITALS: BP 127/47
[2020-10-17] MEDS: ATORVASTATIN CALCIUM 40 MG TABLET. PO SCH (20:15)
[2020-10-17] MEDS: QUEtiapine 100 MG TABLET. PO SCH (20:15)
[2020-10-17 23:00] VITALS: BP 122/47
[2020-10-18 03:00] VITALS: BP 101/38
[2020-10-18 07:00] VITALS: BP 122/83
--- NOTE | 2020-10-18 07:42 | PDOC ---
[employer] PROGRESS NOTE Date of Service DOS: DATE: 10/18/20 TIME: 07:38 Chief Complaint Chief Complaint A/P: Shortness of breath Acute hypoxic respiratory failure - likely ILD that could be IPF vs NSIP. steroids on taper per pulm weakness and falls and weight loss dementia with behavioral disorder, sundowning, Hallucinations nightly, delirium, with behavior poor self care at home, rodent infestation depression may be poorly controlled hyperthyroid, on tapazole History of Present Illness History of Present Illness Ms Schaeffer is a 79 yo F w/ PMHx osteoarthritis, COPD, Dementia, Diabetes-Type II, Hypertension, SSS s/p PPM, diabetic neuropathy who presents to ED via EMS from home on 10/14/20 due to progressive shortness of breath. EMS reports that the patient's home health nurse called, from the patient's assisted living facility where she lives alone, due to frequent falls and hypoxia with O2 saturation < 88% on room air, she arrived 92% on 2L NCO2. She has had a productive brown cough for at least a week with dyspnea on exertion per home health. Patient denies any chest pain, palpitations, nausea, vomiting, diarrhea, abdominal pain, or dizziness. She denies any fever, swelling of her extremities, body aches, or rash. Patient does not wear oxygen at home. She received her two COVID-19 immunizations already. Chest radiograph with bilateral infiltrates She was hospitalized for weakness, sundowning and frequent falls 3 weeks ago and was discharged with home health and gait training program. 10/15: Afebrile overnight. Still coughing up thick brownish sputum. Despite elevated procalcitonin I discussed with pulmonology to probably continue IV antibiotics. She still fairly confused. On 2 L nasal cannula oxygen. 10/16: Afebrile. Awaiting CT chest. COVID-19 pending. Overall she thinks she is feeling better. She is asked for us to speak with her daughter still on 2 L nasal cannula oxygen but she took it off to eat lunch. I discussed with pulmonology. 10/17: Afebrile. BUN up to 30, CR 1.3. No complaints. CT chest: Multifocal ground glass opacities bilaterally with septal thickening involving all lobes. Pulmonary edema or atypical infection. In the chronic setting findings can be seen with nonspecific interstitial pneumonia. Distal lymph nodes enlarged, RUL nodule. Left thyroid nodule Afebrile. Given Lasix and little bit IV fluids yesterday. No complaints. Awaiting echocardiogram, but will defer to outpatient. D/w pulmonogy based on sed rate and CT findings this could be ILD/NSIP vs IPF. Plan for SNF given her poor self care and no good home safety program. Vitals/I&O Vitals/I&O: Vital Signs Date Time Temp Pulse Resp B/P (MAP) Pulse Ox O2 Delivery O2 Flow Rate FiO2 10/18/20 03:00 98.1 68 20 101/38 (59) 92 Nasal Cannula 2.0 98.1 I & O 10/17/20 10/17/20 10/18/20 15:00 23:00 07:00 Intake Total 500 ml 200 ml 400 ml Output Total 1 ml Balance 499 ml 200 ml 400 ml Physical Exam General: Alert, Cooperative, mild distress Lungs: Clear Abdomen: Normal bowel sounds, Soft Extremities: No edema, Normal pulses Skin: No significant lesion Labs Labs: Laboratory Tests Test 10/17/20 11:14 Erythrocyte Sedimentation Rate 50 (0-25) Assessment and Plan Assessmemt and Plan Problems Medical Problems: (1) Shortness of breath Status: Acute (2) UTI (urinary tract infection) Status: Acute Comment Review of Relevant I have reviewed the following items alex (where applicable) has been applied. Medications: Current Medications Medications (Trade) Dose Ordered Sig/Bronson Route PRN Reason Start Time Stop Time Status Last Admin Dose Admin Sodium Chloride 1,000 ml @ 1,000 mls/hr 1X ONCE IV 10/17/20 12:00 10/17/20 12:59 DC 10/17/20 12:29 Images: CT chest: Chest: Enlarged pretracheal lymph node measures 1.9 x 1.5 cm. Left thyroid nodule measures 2.5 cm. Mild atheromatous plaque within the aorta. Coronary artery calcifications. Multifocal groundglass opacities involving all lobes. There is associated septal thickening. No pneumothorax. No pleural effusion. No evidence of honeycombing. Mild bronchiectasis. 4 mm right upper lobe pulmonary nodule (series 3 image 13). Calcified pulmonary nodule, likely prior granulomatous disease. Upper abdomen: The imaged upper abdomen is unremarkable. Bones: Left glenohumeral DJD. Chronic appearing T3 and T4 compression fractures. Multilevel thoracic spondylosis. Impression: 1. Multifocal ground glass opacities bilaterally with septal thickening involving all lobes. In the acute setting findings may represent pulmonary edema or atypical infection. In the chronic setting findings can be seen with nonspecific interstitial pneumonia. Recommend further clinical evaluation and follow-up. Comparison with prior imaging studies would also be of benefit. 2. Enlarged distal lymph nodes, potentially reactive. Recommend attention on follow-up. 3. Small right upper lobe pulmonary nodule. Recommend attention on follow-up. 4. Left thyroid nodule. Recommend ultrasound to further evaluate. Justifications for Admission Other Justification FERNANDA TRINIDAD MD Oct 18, 2020 07:42
[2020-10-18] MEDS: methIMAzole 10 MG TABLET PO SCH (09:32)
[2020-10-18] MEDS: CLOPIDOGREL BISULFATE 75 MG TABLET PO SCH (09:32)
[2020-10-18] MEDS: ENOXAPARIN 40 MG/0.4 ML SYRINGE. SQ SCH (09:32)
[2020-10-18] MEDS: CETIRIZINE HCL 10 MG TABLET. PO SCH (09:33)
[2020-10-18] MEDS: SERTRALINE 25 MG TABLET. PO SCH (09:33)
[2020-10-18] MEDS: LOSARTAN POTASSIUM 25 MG TABLET. PO SCH (09:33)
[2020-10-18] MEDS: LACTOBACILLUS RHAMNOSUS GG 1 CAPSULE. PO SCH (09:33)
--- NOTE | 2020-10-18 10:56 | PDOC ---
PULMONARY PROGRESS NOTES DATE: 10/18/20 TIME: 10:53 Subjective feels better Vitals Vital Signs Date Time Temp Pulse Resp B/P (MAP) Pulse Ox O2 Delivery O2 Flow Rate FiO2 10/18/20 09:33 60 122/83 10/18/20 07:00 97.7 17 95 Nasal Cannula 2.0 97.7 General: Alert, No acute distress Lungs: Crackles Abdomen: Soft Neuro Exam: Alert Extremities: No Edema Skin: Warm Labs Laboratory Tests Test 10/17/20 04:30 10/17/20 11:14 White Blood Count 9.8 x10^3/uL (4.0-11.0) Red Blood Count 4.06 x10^6/uL (3.50-5.40) Hemoglobin 10.9 g/dL (12.0-15.5) Hematocrit 32.9 % (36.0-47.0) Mean Corpuscular Volume 81 fL (79-100) Mean Corpuscular Hemoglobin 27 pg (25-35) Mean Corpuscular Hemoglobin Concent 33 g/dL (31-37) Red Cell Distribution Width 15.2 % (11.5-14.5) Platelet Count 280 x10^3/uL (140-400) Neutrophils (%) (Auto) 64 % (31-73) Lymphocytes (%) (Auto) 22 % (24-48) Monocytes (%) (Auto) 10 % (0-9) Eosinophils (%) (Auto) 4 % (0-3) Basophils (%) (Auto) 1 % (0-3) Neutrophils # (Auto) 6.3 x10^3/uL (1.8-7.7) Lymphocytes # (Auto) 2.1 x10^3/uL (1.0-4.8) Monocytes # (Auto) 0.9 x10^3/uL (0.0-1.1) Eosinophils # (Auto) 0.4 x10^3/uL (0.0-0.7) Basophils # (Auto) 0.1 x10^3/uL (0.0-0.2) Sodium Level 140 mmol/L (136-145) Potassium Level 4.6 mmol/L (3.5-5.1) Chloride Level 105 mmol/L (98-107) Carbon Dioxide Level 28 mmol/L (21-32) Anion Gap 7 (6-14) Blood Urea Nitrogen 30 mg/dL (7-20) Creatinine 1.3 mg/dL (0.6-1.0) Estimated GFR (Cockcroft-Gault) 39.6 Glucose Level 98 mg/dL (70-99) Calcium Level 8.8 mg/dL (8.5-10.1) Erythrocyte Sedimentation Rate 50 (0-25) Laboratory Tests Test 10/17/20 11:14 Erythrocyte Sedimentation Rate 50 (0-25) Medications Active Scripts Medications Dose Route/Sig Max Daily Dose Days Date Category Seroquel (Quetiapine Fumarate) 100 Mg Tablet 1 Tab PO QHS 09/21/20 Rx Dicyclomine Hcl 10 Mg Capsule 1 Cap PO PRN Q6HRS 09/20/20 Reported Acidophilus Lactobacilli (Lactobacillus Acidophilus) 1 Each Capsule 1 Cap PO BID 30 09/20/20 Reported Cetirizine Hcl 10 Mg Tablet 1 Tab PO DAILY 09/20/20 Reported Crestor (Rosuvastatin Calcium) 5 Mg Tablet 10 Mg PO DAILY 09/20/20 Reported Tapazole (Methimazole) 5 Mg Tablet 5 Mg PO DAILY 09/20/20 Reported Clopidogrel (Clopidogrel Bisulfate) 75 Mg Tablet 75 Mg PO DAILY 09/20/20 Reported Donepezil Hcl 10 Mg Tablet 10 Mg PO HS 09/20/20 Reported Sertraline Hcl 25 Mg Tablet 25 Mg PO DAILY 09/20/20 Reported Losartan Potassium 25 Mg Tablet 25 Mg PO DAILY 09/20/[address] CHEST 10/17 reviewed Impression: 1. Multifocal ground glass opacities bilaterally with septal thickening involving all lobes. In the acute setting findings may represent pulmonary edema or atypical infection. In the chronic setting findings can be seen with nonspecific interstitial pneumonia. Recommend further clinical evaluation and follow-up. Comparison with prior imaging studies would also be of benefit. 2. Enlarged distal lymph nodes, potentially reactive. Recommend attention on follow-up. 3. Small right upper lobe pulmonary nodule. Recommend attention on follow-up. 4. Left thyroid nodule. Recommend ultrasound to further evaluate. Electronically signed by: Vladislav Upton DO (10/17/2020 1:05 PM) [facility] Impression . 1. Acute hypoxic respiratory failure, secondary to multifactorial etiologies including combination of chronic obstructive pulmonary disease exacerbation, acute bronchitis/? pneumonia, procalcitonin level is less than 0.10. ILD /? CHF 2. Underlying chronic obstructive pulmonary disease, could be severe. She smoked for 60 years. Not on home oxygen. 3. Mild acute kidney injury. 4. Abnormal chest x-ray with persistent interstitial infiltrates compared to x-ray from 09/19/2020. Her echo in 2019 had shown no significant left ventricular dysfunction. EF was 55-60%. She would benefit from another repeat echo to rule out any congestive heart failure component contributing to her abnormal x-ray. Plan . 1. We will continue with present oxygen. Keep saturation 92 and above. 2. Continue empiric antibiotics for now. 3. Noncontrast CT chest reviewed. diffuse GG/ Interstitial infiltrates. ILD vs interstitial CHF/ doubt pneumonia, sed rate 50, add po steroids 4. Echocardiogram.P 5. Lovenox for DVT prophylaxis. 6. Continue methimazole for hyperthyroidism. 7. repeat ct chest in 3-4 months XAVIER GORDON MD Oct 18, 2020 10:56
[2020-10-18 11:00] VITALS: BP 111/56
[2020-10-18] MEDS ORDERED: predniSONE 20 MG TABLET PO SCH (11:30)
[2020-10-18] MEDS ORDERED: PRED20TA PO (12:50)
--- NOTE | 2020-10-18 12:54 | PDOC3 ---
Discharge Summary Visit Information Date of Admission: Oct 14, 2020 Date of Discharge: Oct 18, 2020 Admitting Diagnosis: Acute respiratory failure with hypoxia Final Diagnosis Problems Medical Problems: (1) Shortness of breath Status: Acute (2) UTI (urinary tract infection) Status: Acute Brief Hospital Course Allergies Allergies Coded Allergies Type Severity Reaction Last Updated Verified No Known Drug Allergies 01/09/20 No Vital Signs Vital Signs Date Time Temp Pulse Resp B/P (MAP) Pulse Ox O2 Delivery O2 Flow Rate FiO2 10/18/20 09:33 60 122/83 10/18/20 07:00 97.7 17 95 Nasal Cannula 2.0 97.7 Lab Results Laboratory Tests Test 10/17/20 04:30 10/17/20 11:14 White Blood Count 9.8 x10^3/uL (4.0-11.0) Red Blood Count 4.06 x10^6/uL (3.50-5.40) Hemoglobin 10.9 g/dL (12.0-15.5) Hematocrit 32.9 % (36.0-47.0) Mean Corpuscular Volume 81 fL (79-100) Mean Corpuscular Hemoglobin 27 pg (25-35) Mean Corpuscular Hemoglobin Concent 33 g/dL (31-37) Red Cell Distribution Width 15.2 % (11.5-14.5) Platelet Count 280 x10^3/uL (140-400) Neutrophils (%) (Auto) 64 % (31-73) Lymphocytes (%) (Auto) 22 % (24-48) Monocytes (%) (Auto) 10 % (0-9) Eosinophils (%) (Auto) 4 % (0-3) Basophils (%) (Auto) 1 % (0-3) Neutrophils # (Auto) 6.3 x10^3/uL (1.8-7.7) Lymphocytes # (Auto) 2.1 x10^3/uL (1.0-4.8) Monocytes # (Auto) 0.9 x10^3/uL (0.0-1.1) Eosinophils # (Auto) 0.4 x10^3/uL (0.0-0.7) Basophils # (Auto) 0.1 x10^3/uL (0.0-0.2) Sodium Level 140 mmol/L (136-145) Potassium Level 4.6 mmol/L (3.5-5.1) Chloride Level 105 mmol/L (98-107) Carbon Dioxide Level 28 mmol/L (21-32) Anion Gap 7 (6-14) Blood Urea Nitrogen 30 mg/dL (7-20) Creatinine 1.3 mg/dL (0.6-1.0) Estimated GFR (Cockcroft-Gault) 39.6 Glucose Level 98 mg/dL (70-99) Calcium Level 8.8 mg/dL (8.5-10.1) Erythrocyte Sedimentation Rate 50 (0-25) Brief Hospital Course Ms Schaeffer is a 79 yo F w/ PMHx osteoarthritis, COPD, Dementia, Diabetes-Type II, Hypertension, SSS s/p PPM, diabetic neuropathy who presents to ED via EMS from home on 10/14/20 due to progressive shortness of breath. EMS reports that the patient's home health nurse called, from the patient's assisted living facility where she lives alone, due to frequent falls and hypoxia with O2 saturation < 88% on room air, she arrived 92% on 2L NCO2. She has had a productive brown cough for at least a week with dyspnea on exertion per home health. Patient denies any chest pain, palpitations, nausea, vomiting, diarrhea, abdominal pain, or dizziness. She denies any fever, swelling of her extremities, body aches, or rash. Patient does not wear oxygen at home. She received her two COVID-19 immunizations already. Chest radiograph with bilateral infiltrates She was hospitalized for weakness, sundowning and frequent falls 3 weeks ago and was discharged with home health and gait training program. 10/15: Afebrile overnight. Still coughing up thick brownish sputum. Despite elevated procalcitonin I discussed with pulmonology to probably continue IV antibiotics. She still fairly confused. On 2 L nasal cannula oxygen. 10/16: Afebrile. Awaiting CT chest. COVID-19 pending. Overall she thinks she is feeling better. She is asked for us to speak with her daughter still on 2 L nasal cannula oxygen but she took it off to eat lunch. I discussed with pulmonology. 10/17: Afebrile. BUN up to 30, CR 1.3. No complaints. CT chest: Multifocal ground glass opacities bilaterally with septal thickening involving all lobes. Pulmonary edema or atypical infection. In the chronic setting findings can be seen with nonspecific interstitial pneumonia. Distal lymph nodes enlarged, RUL nodule. Left thyroid nodule Afebrile. Given Lasix and little bit IV fluids yesterday. No complaints. Awaiting echocardiogram, but will defer to outpatient. D/w pulmonogy based on sed rate and CT findings this could be ILD/NSIP vs IPF. Plan for SNF given her poor self care and no good home safety program. Consults: Pulm Problem list: Shortness of breath Acute hypoxic respiratory failure - likely ILD that could be IPF vs NSIP. steroids on taper per pulm weakness and falls and weight loss dementia with behavioral disorder, sundowning, Hallucinations nightly, delirium, with behavior poor self care at home, rodent infestation depression may be poorly controlled hyperthyroid, on tapazole osteoarthritis COPD Diabetes-Type II Hypertension SSS s/p PPM diabetic neuropathy Greater than 30 minutes spent on d/c to SNF Discharge Information Condition at Discharge: Improved Follow Up: Weeks (1) Disposition/Orders: D/C to Another Facility Scheduled Amoxicillin/Potassium Clav (Augmentin 500-125 Tablet) 1 Each Tablet, 1 TAB PO BID for Pneumonia for 7 Days, #14 Ref 0 Prescribed by: FERNANDA TRINIDAD MD on 10/17/20 1253 Cetirizine Hcl (Cetirizine Hcl) 10 Mg Tablet, 1 TAB PO DAILY for allergy, #30 Ref 5 (Reported) Entered as Reported by: YUE BHANDARI on 09/20/20 0833 Last Action: Continued on 10/14/20 1639 by KATELIN GERBER Clopidogrel Bisulfate (Clopidogrel) 75 Mg Tablet, 75 MG PO DAILY for TO PREVENT BLOOD CLOTS, #30 Ref 0 (Reported) Entered as Reported by: YUE BHANDARI on 09/20/20 0815 Last Action: Continued on 10/14/20 1639 by KATELIN GERBER Dicyclomine Hcl (Dicyclomine Hcl) 10 Mg Capsule, 1 CAP PO PRN Q6HRS for pain, #100 Ref 3 (Reported) Entered as Reported by: YUE BHANDARI on 09/20/20 1214 Last Action: Continued on 10/14/20 163 by KATELIN GERBER Donepezil Hcl (Donepezil Hcl) 10 Mg Tablet, 10 MG PO HS for dementia, (Reported) Entered as Reported by: YUE BHANDARI on 09/20/20 0815 Last Action: Continued on 10/14/201638 by KATELIN EGRBER Lactobacillus Acidophilus (Acidophilus Lactobacilli) 1 Each Capsule, 1 CAP PO BID for probiotic for 30 Days, #60 Ref 0 (Reported) Entered as Reported by: YUE BHANDARI on 09/20/20 1214 Last Action: Converted on 10/14/201638 by KATELIN GERBER Losartan Potassium (Losartan Potassium) 25 Mg Tablet, 25 MG PO DAILY for htn, (Reported) Entered as Reported by: YUE BHANDARI on 09/20/20 0815 Last Action: Continued on 10/14/201638 by KATELIN GERBER Methimazole (Tapazole) 5 Mg Tablet, 5 MG PO DAILY for thyroid, (Reported) Entered as Reported by: YUE BHANDARI on 09/20/2017 Last Action: Converted on 10/14/201638 by KATELIN GERBER Prednisone (Prednisone) 20 Mg Tablet, 40 MG PO DAILY for ILD for 10 Days, #15 Prescribed by: FERNANDA TRINIDAD MD on 10/18/20 1250 Quetiapine Fumarate (Seroquel) 100 Mg Tablet, 1 TAB PO QHS for sleep, #30 Ref 1 Prescribed by: KATELIN GERBER on 09/21/20 1139 Last Action: Continued on 10/14/201638 by KATELIN GERBER Rosuvastatin Calcium (Crestor) 5 Mg Tablet, 10 MG PO DAILY for FOR CHOLESTEROL, #30 Ref 0 (Reported) Entered as Reported by: YUE BHANDARI on 09/20/20816 Last Action: Converted on 10/14/201638 by KATELIN GERBER Sertraline Hcl (Sertraline Hcl) 25 Mg Tablet, 25 MG PO DAILY for ANTI- DEPRESSANT, Ref 0 (Reported) Entered as Reported by: YUE BHANDARI on 09/20/20814 Last Action: Continued on 10/14/201638 by KATELIN GERBER Justicifation of Admission Dx: Justifications for Admission: Justification of Admission Dx: N/A FERNANDA TRINIDAD MD Oct 18, 2020 12:54
== END 2020-10-18 13:15 | DRG 177 ==
LOC: ER 11:55 → 6 SOUTH 14:17
PROVIDERS: ADMIT Internal Medicine; ATTEND Internal Medicine
DX: J15.6 Pneumonia due to other Gram-negative bacteria (principal); J96.01 Acute respiratory failure with hypoxia; F03.91 Unspecified dementia, unspecified severity, with behavioral disturbance; F05 Delirium due to known physiological condition; J44.0 Chronic obstructive pulmonary disease with (acute) lower respiratory infection; J44.1 Chronic obstructive pulmonary disease with (acute) exacerbation; N17.9 Acute kidney failure, unspecified; N39.0 Urinary tract infection, site not specified; Z20.822 Contact with and (suspected) exposure to COVID-19; E05.90 Thyrotoxicosis, unspecified without thyrotoxic crisis or storm; I25.10 Atherosclerotic heart disease of native coronary artery without angina pectoris; F32.9 Major depressive disorder, single episode, unspecified; F41.9 Anxiety disorder, unspecified; J20.9 Acute bronchitis, unspecified; E04.1 Nontoxic single thyroid nodule; E11.40 Type 2 diabetes mellitus with diabetic neuropathy, unspecified; I11.0 Hypertensive heart disease with heart failure; I49.5 Sick sinus syndrome; I50.9 Heart failure, unspecified; M19.90 Unspecified osteoarthritis, unspecified site; R29.6 Repeated falls; Z87.891 Personal history of nicotine dependence; Z90.49 Acquired absence of other specified parts of digestive tract; Z95.0 Presence of cardiac pacemaker; Z60.2 Problems related to living alone
CPT/HCPCS: 36415; 71045; 71250; 80048; 80053; 81001; 82553; 83690; 83735; 83880; 84145; 84484; 85025; 85379; 85651; 87086; 99285; J0696; J1650; J7030; J7512; U0003; U0005; 97110-GO; 97110-GP; 97535-GO; G0378